=== PATIENT | female | born 1945 | race Caucasian/White ===

== ENCOUNTER → 2017-02-03 | Outpatient (CLI) | payer OTHER, BC ==
[~2017-02-03] MED LIST: BUPRTAB PO; BUSP15TA70 PO; CALC600T9 PO; CLR10 PO; CRFL PO; CRS/10 PO; DIAZ2TAB2 PO; ESCI1TAB9 PO; ESTR0.05 TOP; LEVO1TAB33 PO; LEVO75TA PO; MISCCAP80 PO; MULT-884 PO; PANT40TA PO; POTA8CAP6 PO; PRD20 PO; SPIR25TA PO
== END | disposition home or self-care (01) ==
LOC: C.LAB1850 15:00
PROVIDERS: ATTEND Internal Medicine Infectious Disease
DX: B37.0 Candidal stomatitis (principal); D80.9 Immunodeficiency with predominantly antibody defects, unspecified

== ENCOUNTER 2017-02-26 07:09 | Inpatient (IN) | payer OTHER, BC ==
[2017-02-23 14:08] VITALS: BMI 25.0
[2017-02-26] VITALS (7 sets, daily range): BP systolic 163–166; BP diastolic 76–88; PULSE 71–112; TEMP 36.4; O2SAT 95–100; Ht 157.5 cm; Wt 64.0 kg
[~2017-02-26] VITALS: Ht 157.5 cm; Wt 64.0 kg
[~2017-02-26 07:09] MED LIST changes: -BUPRTAB PO; +BUSP-8 PO; -BUSP15TA70 PO; -CRFL PO; -DIAZ2TAB2 PO; -LEVO1TAB33 PO; +NTRGSL/4 UT; +NXM/40 PO; -PANT40TA PO; -PRD20 PO; +PROP20TA67 PO; -SPIR25TA PO; +[UNRECOGNIZED DRUG - OTHER] IV
[2017-02-26] MEDS ORDERED: SODIUM CHLORIDE 0.9% 500ML 500 ML IV ONE (08:42)
--- NOTE | 2017-02-26 08:43 | Endo History and Physical ---
History & Physical Date of Service: Feb 26, 2017. Chief Complaint: DYSPHAGIA Referring Physician: DR. CARDOSO History of Present Illness 71 yo CF who presents for EGD secondary to dysphagia. 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) Hx Urinary Tract Surgery: No Family History Colon CA Social History Smoking Status: Never Smoker Hx Substance Use: No Hx Alcohol Use: No Allergies Coded Allergies: Rituximab (Verified Allergy, Severe, STRESSES BODY LEAD TO LA/INCREASED DEPRESSION, 02/26/17) Penicillins (Verified Allergy, Intermediate, RASH, 02/18/17) Povidone Iodine (Verified Allergy, Intermediate, RASH, 02/18/17) Golimumab (Verified Allergy, Unknown, SHORTNESS OF BREATH, 02/23/17) Latex1 -Allergic Contact Dermititis (Verified Allergy, Unknown, RASH, 02/18) Ondansetron (Verified Allergy, Unknown, SEIZURE-LIKE ACTIVITY, 02/23/17) "IT REACTED WITH LEXAPRO" Sorbitan (Verified Allergy, Unknown, SHORTNESS OF BREATH, 02/23/17) Current Medications Reported Home Medications Medications Dose Route/Sig Max Daily Dose Days Date Category [Gaspofungis Acitate] 1 Dose IV DAILY 02/23/17 Reported Klor-Con Ext Rel (Potassium Chloride) 8 Meq Cap 1-2 Tabs PO QAM 02/23/17 Reported Nexium (Esomeprazole Magnesium) 40 Mg Capcr 40 Mg PO QAM 02/23/17 Reported Nitrostat (Nitroglycerin) 0.4 Mg Tab 0.4 Mg UT UD PRN 02/23/17 Reported Inderal (Propranolol HCl) 20 Mg Tab 1.5 Tabs PO HS 02/23/17 Reported Buspirone Hcl 10 Mg Tab 10 Mg PO HS 02/23/17 Reported Claritin (Loratadine) 10 Mg Tab 10 Mg PO DAILY PRN 11/17/15 Reported Calcium + D (Calcium Carbonate-Vitamin D) 1 Tab Tab 1 Tab PO DAILY 11/17/15 Reported Multi Vitamin Daily (Multiple Vitamin) 1 Tab Tab 1 Tab PO DAILY 11/17/15 Reported Probiotic (Probiotic Product) 1 Cap Cap 1 Cap PO DAILY 11/17/15 Reported Synthroid (Levothyroxine Sodium) 75 Mcg Tab 75 Mcg PO QAM 11/17/15 Reported Crestor (Rosuvastatin Calcium) 10 Mg Tab 10 Mg PO HS 11/17/15 Reported Lexapro (Escitalopram Oxalate) 10 Mg Tab 10 Mg PO QAM 07/11/14 Reported Vivelle-Dot (Estradiol) 0.05 Mg/24 Hr Dis 0.05 Mg TOP WK 05/19/14 Reported Vital Signs Weight (Kilograms): 62.73 Height (Feet): 5 Height (Inches): 2 Date Time Temp Pulse Resp B/P (MAP) Pulse Ox O2 Delivery O2 Flow Rate FiO2 02/26/17 08:05 36.6 68 16 173/75 (107) 98 Room Air Physical Exam General Appearance: WD/WN, no apparent distress Respiratory/Chest: Auscultation: breath sounds normal Cardiovascular: Heart Auscultation: RRR Abdomen: Bowel Sounds: normal Inspection & Palpation: soft, non-distended, no tenderness, guarding & rebound Assessment and Plan Assessment: 71 yo CF who presents for EGD secondary to dysphagia. Plan: Proceed with EGD.
[2017-02-26] MEDS ORDERED: KETAMINE HCL INJ 50 MG/ML 10 ML VIAL ONE (09:16)
[2017-02-26] MEDS ORDERED: MIDAZOLAM HCL 1 MG/ML 2ML VIAL ONE (09:46)
[2017-02-26] MEDS ORDERED: DEXAMETHASONE SOD INJ 4 MG/ML VIAL ONE (10:24)
[2017-02-26] MEDS ORDERED: EpINEphrine INJ 1MG/ML AMP 1 MG/ML AMP ONE (10:24)
[2017-02-26] MEDS ORDERED: PROPOFOL IV EMULSION 10 MG/ML 20 ML VIAL IV ONE (10:24)
[2017-02-26] MEDS ORDERED: LIDOCAINE HCL 2% 2 ML VIAL (20MG/ML) ONE (10:24)
[2017-02-26] MEDS ORDERED: SUCCINYLCHOLINE 100MG/5ML SYR IV ONE (10:26)
[2017-02-26] MEDS ORDERED: POLYETHYLENE (MIRALAX) 17 GM PACK PO PRN (10:45)
[2017-02-26] MEDS ORDERED: ALUMINUM/MAGNESIUM/SIMETH (MAALOX MAX) 30 ML UDC PO PRN (10:45)
[2017-02-26] MEDS ORDERED: MAGNESIUM HYDROXIDE SUSP 30 ML UDC PO PRN (10:45)
--- NOTE | 2017-02-26 11:00 | GI REPORT ---
Procedure Date: 02/26/2017 8:46 AM Procedure: Upper GI endoscopy Indications: Dysphagia Medicines: Monitored Anesthesia Care Complications: Bronchospasm Estimated Blood Loss: Estimated blood loss: none. Procedure: Pre-Anesthesia Assessment: - Prior to the procedure, a History and Physical was performed, and patient medications and allergies were reviewed. The patient's tolerance of previous anesthesia was also reviewed. The risks and benefits of the procedure and the sedation options and risks were discussed with the patient. All questions were answered, and informed consent was obtained. Prior Anticoagulants: The patient has taken no previous anticoagulant or antiplatelet agents. ASA Grade Assessment: III - A patient with severe systemic disease. After reviewing the risks and benefits, the patient was deemed in satisfactory condition to undergo the procedure. After obtaining informed consent, the endoscope was passed under direct vision. Throughout the procedure, the patient's blood pressure, pulse, and oxygen saturations were monitored continuously. The scope was introduced through the mouth, with the intention of advancing to the duodenum. The scope was advanced to the second part of the duodenum before the procedure was aborted. Medications were given. The upper GI endoscopy was accomplished without difficulty. The patient tolerated the procedure poorly due to the patient's respiratory instability (bronchospasm). Findings: No endoscopic abnormality was evident in the esophagus to explain the patient's complaint of dysphagia. The entire examined stomach was normal. The examined duodenum was normal. Impression: - No endoscopic esophageal abnormality to explain patient's dysphagia. - Normal stomach. - Normal examined duodenum. - No specimens collected. Recommendation: - Admit the patient to [facility] for [facility] care. - Advance diet as tolerated. - Continue present medications. Zachary Bhakta, DO 02/26/2017 10:59:33 AM This report has been signed electronically. Note Initiated On: 02/26/2017 8:46 AM I attest to the content of the Intraoperative Record and orders documented therein, exceptions below
--- NOTE | 2017-02-26 11:03 | Anesthesiology Progress Note ---
Anesthesia Post Op Note Date & Time Feb 26, 2017 at 10:47 Vital Signs Pain Intensity: 0 Vital Signs Past 12 Hours Date Time Temp Pulse Resp B/P (MAP) Pulse Ox O2 Delivery O2 Flow Rate FiO2 02/26/17 08:05 36.6 68 16 173/75 (107) 98 Room Air Notes Mental Status: alert / awake / arousable, participated in evaluation Pt Amnestic to Procedure: Yes Nausea / Vomiting: adequately controlled Pain: adequately controlled Airway Patency, RR, SpO2: stable & adequate BP & HR: stable & adequate Hydration State: stable & adequate Anesthetic Complications: no major complications apparent Pt is a 71 yo female with h/o HTN, XOL, OA, chronic fungal infection with IV fungal treatment through PICC, and throat spasms on NTG at home. Pt reports having spasms intermittently at home with relief after using SL NTG. Has been seeing ENT in [place], not sure whether the fungal infection plays a role in causing the spasms. EGD was scheduled today to r/o esophageal fungal infection and dysphagia. During procedure, pt went into laryngospasm with O2 sats dropping to 50% precipitously, unable to move air with ambu bag. 10mg of succinylcholine IV was given and laryngospasm was broken. O2 sats went up to 100 %. Patient easily masked with 100% FiO2. Pt was then aroused and was breathing on her own, however, inspiratory stridor was noted. 8mg IV decadron and racemic epi nebulizer was given with some improvement. Pt at this point was awake. Sats maintained between 96-100%. However, pt still was coughing and have the sensation of not able to breathe. Her NTG SL was given x 2 with more improvement. 2mg of IV Versed was given to relief her anxiety. Sats continued to be in upper 90%. Discussed with Dr. Bhakta and the decision was made to observe patient overnight with consult to hospitalist. SALVADOR Morel with the hospitalist service came and interviewed the patient; report was given to her regarding patient's medication and treatment so far. Dr. López with ENT, was also briefly consulted and recommended just observation overnight given that patient is not having any issues with oxygenation and maintaining her O2 level. I explained to both patient and her sister, Lovely, about plan of admission and both agreed with plan. VSS.
[2017-02-26] MEDS ORDERED: NITROGLYCERIN 0.4 MG SL PER TAB CHARGE SL PRN ×2 (11:30→14:15)
[2017-02-26] MEDS ORDERED: IV FLUIDS COMPLETED PRN ×2 (11:30→12:45)
[2017-02-26] MEDS ORDERED: ALBUTEROL 0.083% NEBU SOLN 3 ML VIAL INH SCH (11:45)
--- NOTE | 2017-02-26 11:47 | DIAGNOSTIC IMAGING REPORT ---
CHEST ONE VIEW PORTABLE CLINICAL HISTORY: Laryngospasm - Dyspnea dyspnea COMPARISON STUDY: 11/17/2015 FINDINGS: Interval parenchymal infiltrate left mid to lower lung. Trace pleural effusion left base. Right lung is clear. There is been placement of a PICC catheter in superior vena cava. No evidence pneumothorax. IMPRESSION: Parenchymal infiltrate left mid to lower lung. Small left pleural effusion. PICC catheter in the superior vena cava. The above report was generated using voice recognition software. It may contain grammatical, syntax or spelling errors. Electronically signed by: Giorgi Menezes M.D. 02/26/2017 11:46 AM Dictated Date/Time: 02/26/2017 11:45 AM
--- NOTE | 2017-02-26 11:55 | History and Physical ---
History & Physical Date & Time of Service: Feb 26, 2017 at 11:55 Chief Complaint: Dysphagia Pager 2 Primary Care Physician: Allison Wood M.D. History of Present Illness Source: patient, clinic records, hospital records Ms. Rivera is a 71 y/o female with PMHx of Rheumatoid Arthritis, Chronic Dysphagia, Anxiety/Depression, GERD, HLD, Hypothyroidism, CAD S/P NSTEMI, H/O Gastric Ulcers, Chronic Diastolic CHF who experienced laryngospasm during EGD. Patient reports having daily laryngospasms since the summer and has undergone evaluation for cause. She has been unable to adequately eat due to this but only reports a 5 lbs weight loss since the summer. She has difficulty with solids and liquids. She cannot really state at what phase of swallowing she is having difficulty with. These spasms initially only occurred every few days but have progressed to daily occurrences with multiple episodes. Also states that these episodes are taking longer to resolve compared to when this issues began. She has been followed by Dr. Thompson for oropharynx fungal infection that only minimally responded to Diflucan so was recently placed on Caspofungin 50 mg IV with PICC line in place. During EGD no findings present to explain her chronic dysphagia or findings of fungal infection. She has been utilizing NTG SL PRN with relief. During procedure she developed laryngospasm resulting in significant hypoxia of 50% and unable to move air with Ambu-bag. She was given succinylcholine which resolved the spasm and saturations returned to 100%. Due to inspiratory stridor she then received Decadron 8 mg IV and Racemic Epi that did result in improvement. She was maintaining adequate oxygenations but would experience coughing and wheezing that would result in hypoxia in high-80s. During coughing spells she appeared in more distress and reporting SOB. NTG SL was initiated x 2 doses and Versed given which continued to improve her. Anesthesia discussed with ENT for possible scope but recommended just observation overnight as oxygenations were adequate. She does follow with Dr. Ellis from ENT in [place]. Past Medical/Surgical History 1. Rheumatoid Arthritis 2. Chronic Dysphagia 3. Anxiety/Depression 4. GERD 5. HLD 6. Hypothyroidism 7. CAD S/P NSTEMI 8. Gastric Ulcers 9. Diastolic CHF Family History Cancer Hypertension Social History Smoking Status: Never Smoker Smokeless Tobacco Use: No Alcohol Use: none Drug Use: none Marital Status: Allergies Coded Allergies: Rituximab (Verified Allergy, Severe, STRESSES BODY LEAD TO [place]/INCREASED DEPRESSION, 02/26/17) Penicillins (Verified Allergy, Intermediate, RASH, 02/18/17) Povidone Iodine (Verified Allergy, Intermediate, RASH, 02/18/17) Golimumab (Verified Allergy, Unknown, SHORTNESS OF BREATH, 02/23/17) Latex1 -Allergic Contact Dermititis (Verified Allergy, Unknown, RASH, 02/18) Ondansetron (Verified Allergy, Unknown, SEIZURE-LIKE ACTIVITY, 02/23/17) "IT REACTED WITH LEXAPRO" Sorbitan (Verified Allergy, Unknown, SHORTNESS OF BREATH, 02/23/17) Home Medications Scheduled Buspirone Hcl (Buspirone Hcl), 10 MG PO HS Calcium Carbonate-Vitamin D (Calcium + D), 1 TAB PO DAILY Escitalopram Oxalate (Lexapro), 10 MG PO QAM Esomeprazole Magnesium (Nexium), 40 MG PO QAM Estradiol (Vivelle-Dot), 0.05 MG TOP WK Levothyroxine Sodium (Synthroid), 75 MCG PO QAM Multiple Vitamin (Multi Vitamin Daily), 1 TAB PO DAILY Potassium Chloride (Klor-Con Ext Rel), 1-2 TABS PO QAM Probiotic Product (Probiotic), 1 CAP PO DAILY Propranolol (Inderal), 1.5 TABS PO HS Rosuvastatin Calcium (Crestor), 10 MG PO HS [Gaspofungis Acitate], 1 DOSE IV DAILY Scheduled PRN Loratadine (Claritin), 10 MG PO DAILY PRN for Seasonal Allergies Nitroglycerin (Nitrostat), 0.4 MG UT UD PRN for THROAT SPASMS Review of Systems Constitutional: No fever, No chills Eyes: No worsening of vision ENT: + trouble swallowing (chronic), + problem reported (chronic laryngospasm) , No nasal symptoms, No sore throat Respiratory: + cough, + wheezing, + shortness of breath Cardiovascular: No chest pain, No palpitations Abdomen: No pain, No nausea, No vomiting, No diarrhea, No constipation Musculoskeletal: No swelling, No calf pain Genitourinary - Female: No dysuria Hematologic / Lymphatic: No abnormal bleeding/bruising, No clotting problems Integumentary: No rash Physical Exam Vital Signs Date Time Temp Pulse Resp B/P (MAP) Pulse Ox O2 Delivery O2 Flow Rate FiO2 02/26/17 11:40 73 20 134/73 (93) 98 Oxymask 10 02/26/17 11:25 74 18 159/ (52) 98 Oxymask 10 02/26/17 11:10 85 18 160/82 (108) 98 Oxymask 10 02/26/17 10:55 84 22 160/77 (104) 98 Oxymask 10 98 02/26/17 10:40 89 20 164/78 (106) 98 Oxymask 10 98 02/26/17 08:05 36.6 68 16 173/75 (107) 98 Room Air General Appearance: WD/WN, + mild distress (respiratory with coughing spells) Head: normocephalic, atraumatic Eyes: sclerae normal ENT: hearing grossly normal, pharynx normal Neck: supple, no JVD, trachea midline, + pertinent finding (stridor upon auscultation) Respiratory/Chest: + respiratory distress, + stridor, + wheezing Cardiovascular: regular rate, rhythm, no gallop, no murmur Abdomen/GI: normal bowel sounds, non tender, soft Extremities/Musculoskelatal: no calf tenderness, no pedal edema, + pertinent finding (LUE PICC without erythema or discharge) Neurologic/Psych: alert, oriented x 3 Skin: normal color, warm/dry Diagnostics Laboratory Results Microbiology Results 02/26/17 MRSA DNA Surveillance Screen, Ordered Pending Diagnostic Radiology CHEST ONE VIEW PORTABLE FINDINGS: Interval parenchymal infiltrate left mid to lower lung. Trace pleural effusion left base. Right lung is clear. There is been placement of a PICC catheter in superior vena cava. No evidence pneumothorax. IMPRESSION: Parenchymal infiltrate left mid to lower lung. Small left pleural effusion. PICC catheter in the superior vena cava. Impression Assessment and Plan Ms. Rivera is a 71 y/o female with PMHx of Rheumatoid Arthritis, Chronic Dysphagia, Anxiety/Depression, GERD, HLD, Hypothyroidism, CAD S/P NSTEMI, H/O Gastric Ulcers, Chronic Diastolic CHF who experienced laryngospasm during EGD. Acute Hypoxic Respiratory Failure with Resp. Distress due to Laryngospasm: - Due to concern for airway compromise and risk for rapid worsening of stridor will place in ICU for initial observation -- Discussed with patient that she would want to be intubated if necessary - Was significantly hypoxic at 50% during EGD and required succs, decadron, racemic epi, versed, and nitro - EGD without significant findings to identify cause of dysphagia - Decadron 8 mg IV Q8H and Racemic Epi Q4H with Albuterol PRN - Will defer further antibiotics as repeat CXR with aeration improvement - Pulmonary and Intensivists consulted - appreciate assistance Chronic Dysphagia and Laryngospasm/GERD: - Initial question of fungal infection involvement and currently on Caspofungin 50 mg IV - will consult ID and appreciate further recommendations - ENT consultation placed and recommend evaluation for CA joint involvement due to RA - Protonix 40 mg daily Rheumatoid Arthritis: - Currently off treatment but previously on Simponi and was following with Dr. Roberson - Rheumatology consulted - appreciate recommendations and will review records -- Recommending Prednisone 30 mg daily x 4 days and taper by 10 mg every 4 days and then do 5 mg daily senior living T2DM? - Documented in chart however patient states she is not diabetic or ever on anti -diabetic medication - Random glucose on BMP at 170 and plan to implement Decadron so will monitor BSGs and cover with SSI; obtain A1c CAD S/P NSTEMI and HTN: - Follows with cardiology - suggested NSTEMI was from Sepsis/PNA instead of a coronary process - HTN believed to be related to possible use of Simponi and has been monitored - No ASA due to H/O gastric ulcers - Propranolol 30 mg daily Anxiety/Depression: - Buspar 10 mg daily and Lexapro 10 mg daily Hypothyroidism: - Synthroid 75 mcg daily DVT Prophylaxis: SCDs; if here for multiple days can add Heparin Code Status: FULL RESUSCITATION Disposition: - Initial monitoring in ICU for concern of airway compromise - Pending stability of airway and recommendations for specialists - possible D/ C in 2-3 days Level of Care Critical Care Resuscitation Status FULL RESUSCITATION VTE Prophylaxis VTE Risk Assessment Done? Y/N: Yes Risk Level: Moderate Given or contraindicated: SCD's Reviewed: Pt Seen/Exam by Me History Physician Pharmacy Benefit Manager Supervision Note: I interviewed and examined the patient. Discussed with SALVADOR Benson and agree with findings and plan as documented in the note. Any exceptions or clarifications are listed here: Pt admitted for acute laryngospasm just after EGD performed today. When I first saw her,she was still in the Endo suite and was still having inspiratory stridor , was requiring 15 L NRB to keep sat at 90%. SHe denies CP, was coughing, denies abd pain or any other concerns, but was SOB. Vtials reviewed NAD, AAOx3 Neck supple, no TYE palpable, no thryromegaly mild tachycardia, no mgr Lungs with diffuse wheezing insp and exp, very poor air movement throughout lungs bilat, and obvious stridor auscultated best over anterior mid chest/ tracheal area Abd + bS soft NT ND Ext no edema, no calf tenderness 71 yo female with multiple medical issues, here with acute laryngospasm in setting of recurrent dysphagia which has likely also been laryngospasm at home. 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 -CXR with poor inspiration on initial CXR due to laryngospasm, repeat much improved, no sign of PNA, no abx needed SCDs for DVT proph Documented By: Ceci Burgos
[2017-02-26] MEDS ORDERED: CASPOFUNGIN INJ 50 MG in SODIUM CHLORIDE 0.9% 250ML 250 ML IV ONE (13:00)
[2017-02-26] MEDS: ACETAMINOPHEN 325 MG TAB PO PRN ×2 (13:06→20:20)
[2017-02-26] MEDS: SODIUM CHLORIDE 0.9% 1000ML 1,000 ML IV SCH (13:06)
--- NOTE | 2017-02-26 13:41 | Pulmonary Consultation ---
History General Date of Service: Feb 26, 2017. Stated Complaint: Dysphagia Pager 2 HPI The patient is a 71 year old female who presents to [facility] [address] with complaints of Dysphagia Pager 2. The patient's primary care provider is Allison Wood M.D.. Mrs. Lagunas is a 71-year-old female with past medical history of type 2 diabetes, rheumatoid arthritis, hypothyroidism, anxiety/depressive disorder and NSTEMI who present for EGD for today for evaluation of possible dysphagia. She is currently being followed by ENT for laryngospasm. Her symptoms started in September of this year. She states that she has these episodes several times a day. Laryngospasms are often associated with stridor, choking sensation, dyspnea and "lump in throat." Spasms can occur spontaneously, but can be trigger by eating hard food, drinking cold drinks,coughing and anxiety. Symptoms should resolve with sublingual nitroglycerin within a minute, but now she has to take about 2- 3 pills before spasms resolve. She has seen ENT on weekly basis where laryngoscopy has been performed. She is currently on daily gaspofungis 1 dose daily IV for candidiasis of larynx. She has mild dyspnea on exertion, but able to perform activities of daily living. She denies dyspnea at rest. She has history of reflux disease and ulcers as well as chronic sinusitis and rhinitis. She denies any wheezing or chest tightness associated. She was being evaluated by GI today for dysphagia and to rule out esophageal candidiasis. EGD was essentially normal. However during the procedure patient went into laryngospasm with desaturations in the 50s. She was unable to be ventilated via Ambu bag. She was given succinylcholine IV and laryngospasm resolved. O2 sats increased to 100%. She was mask with 100% FiO2. Patient aroused but was noted to have inspiratory stridor. She was given 8 mg of IV Decadron as well as racemic epi nebulizer with improvement. She was also given 2 mg of IV Versed and for anxiety. Vital signs MAXIMUM TEMPERATURE 36.6, blood pressure 134/73 to 173/75, pulse 60- 89, respiratory rate 16-22, pulse oximetry 92% on 4-10 L/min. Stat chest x-ray ordered and shows parenchymal infiltrate in the left mid to lower lung, small left pleural effusion. PICC catheter in superior vena cava. Hospital list team was consulted for overnight observation. Pulmonary consulted for laryngospasm. At the time of my evaluation, vital signs stable. Currently saturating in the 100s on 10L/m oxymizer. She complains of sensation of something being "stuck" in her throat. She denies any chest pain or shortness of breath. Otherwise feeling much better. Historian: patient, other (EMR) Onset: this morning Severity: severe Complaint Status: improved Review of Systems Constitutional: reports: as stated in HPI, malaise Eyes: reports: as stated in HPI ENT: reports: as stated in HPI Cardiovascular: reports: as stated in HPI Respiratory: reports: as stated in HPI Gastrointestinal: reports: as stated in HPI Genitourinary - Female: reports: as stated in HPI Musculoskeletal: reports: as stated in HPI Integumentary: reports: as stated in HPI Neurologic: reports: as stated in HPI Psychiatric: reports: as stated in HPI Endocrine: as stated in HPI Hematologic / Lymphatic: as stated in HPI Allergic / Immunologic: as stated in HPI All Other Symptoms All Other Systems: Reviewed and Negative Past Medical History Past Medical History: Type 2 diabetes, rheumatoid arthritis, hypothyroidism, anxiety/depressive disorder and NSTEMI. Past Surgical History: Back surgery C section EGD Family History Cancer Hypertension Sister had Kaw[place]i disease 1st child of agammglobinemia at 6 years old Father of GI cancer Social History She is a lifetime nonsmoker. She denies any alcohol or illicit drug use. 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 Hx Tobacco Use In Past Year?: No Smoking Status: Never Smoker Marital status: Allergies Coded Allergies: Rituximab (Verified Allergy, Severe, STRESSES BODY LEAD TO [place]/INCREASED DEPRESSION, 02/26/17) Penicillins (Verified Allergy, Intermediate, RASH, 02/18/17) Povidone Iodine (Verified Allergy, Intermediate, RASH, 02/18/17) Golimumab (Verified Allergy, Unknown, SHORTNESS OF BREATH, 02/23/17) Latex1 -Allergic Contact Dermititis (Verified Allergy, Unknown, RASH, 02/18) Ondansetron (Verified Allergy, Unknown, SEIZURE-LIKE ACTIVITY, 02/23/17) "IT REACTED WITH LEXAPRO" Sorbitan (Verified Allergy, Unknown, SHORTNESS OF BREATH, 02/23/17) Current Medications Reported Home Medications Medications Dose Route/Sig Max Daily Dose Days Date Category [Gaspofungis Acitate] 1 Dose IV DAILY 02/23/17 Reported Klor-Con Ext Rel (Potassium Chloride) 8 Meq Cap 1-2 Tabs PO QAM 02/23/17 Reported Nexium (Esomeprazole Magnesium) 40 Mg Capcr 40 Mg PO QAM 02/23/17 Reported Nitrostat (Nitroglycerin) 0.4 Mg Tab 0.4 Mg UT UD PRN 02/23/17 Reported Inderal (Propranolol HCl) 20 Mg Tab 1.5 Tabs PO HS 02/23/17 Reported Buspirone Hcl 10 Mg Tab 10 Mg PO HS 02/23/17 Reported Claritin (Loratadine) 10 Mg Tab 10 Mg PO DAILY PRN 11/17/15 Reported Calcium + D (Calcium Carbonate-Vitamin D) 1 Tab Tab 1 Tab PO DAILY 11/17/15 Reported Multi Vitamin Daily (Multiple Vitamin) 1 Tab Tab 1 Tab PO DAILY 11/17/15 Reported Probiotic (Probiotic Product) 1 Cap Cap 1 Cap PO DAILY 11/17/15 Reported Synthroid (Levothyroxine Sodium) 75 Mcg Tab 75 Mcg PO QAM 11/17/15 Reported Crestor (Rosuvastatin Calcium) 10 Mg Tab 10 Mg PO HS 11/17/15 Reported Lexapro (Escitalopram Oxalate) 10 Mg Tab 10 Mg PO QAM 07/11/14 Reported Vivelle-Dot (Estradiol) 0.05 Mg/24 Hr Dis 0.05 Mg TOP WK 05/19/14 Reported Physical Physical Exam Vital Signs: Date Time Temp Pulse Resp B/P (MAP) Pulse Ox O2 Delivery O2 Flow Rate FiO2 02/26/17 11:40 73 20 134/73 (93) 98 Oxymask 02/26/17 11:25 74 18 159/ (52) 98 Oxymask 02/26/17 11:10 85 18 160/82 (108) 98 Oxymask 02/26/17 10:55 84 22 160/77 (104) 98 Oxymask 10 98 02/26/17 10:40 89 20 164/78 (106) 98 Oxymask 10 98 02/26/17 08:05 36.6 68 16 173/75 (107) 98 Room Air General Appearance: WELL-APPEARING, NO APPARENT DISTRESS, uncomfortable Head: NORMOCEPHALIC, ATRAUMATIC Eyes: PERRLA, NO DISCHARGE, EOMI, SCLERAE NORMAL, CONJUNCTIVAE NORMAL ENT: NORMAL MOUTH EXAM Neck: NORMAL RANGE OF MOTION, NO TENDERNESS, TRACHEA MIDLINE, NO NUCHAL RIGIDITY, other (intermittent stridor) Respiratory: BREATH SOUNDS NORMAL, CLEAR TO AUSCULTATION, NO TENDERNESS Cardiovasular: REGULAR RATE/RHYTHM, NORMAL S1S2, NO M/G/R Abdomen: NON TENDER, NORMAL BOWEL SOUNDS, NO REBOUND Genitourinary - Female: EXTERNAL GENITALIA NORMAL Back: NORMAL INSPECTION, NO MIDLINE TENDERNESS Upper Extremities: NO EDEMA, other (Swelling of PIP joints bilaterally) Lower Extremities: other (trace lower extremity swelling bilaterally) Pulses: dorsalis pedis (R) (2+), dorsalis pedis (L) (2+) Neuro: ALERT, ORIENTED x 3, NORMAL MOTOR EXAM, NORMAL SENSATION, NORMAL CEREBELLAR EXAM, NORMAL MEMORY Psychiatric: NORMAL AFFECT, NO SUICIDAL IDEATION, CONTRACTS FOR SAFETY, depressed Diagnostics Labs Microbiology Results 02/26/17 MRSA DNA Surveillance Screen, Ordered Pending Diagnostic Radiology CHEST ONE VIEW PORTABLE 02/26/2017 CLINICAL HISTORY: Laryngospasm - Dyspnea dyspnea COMPARISON STUDY: 11/17/2015 FINDINGS: Interval parenchymal infiltrate left mid to lower lung. Trace pleural effusion left base. Right lung is clear. There is been placement of a PICC catheter in superior vena cava. No evidence pneumothorax. IMPRESSION: Parenchymal infiltrate left mid to lower lung. Small left pleural effusion. PICC catheter in the superior vena cava. L VENOUS DOPPLER UPR EXT UNIL 02/18/2017 HISTORY: Pain. Edema. PT HAVING SHARP PAINS AROUND PICC LINE AND TINGLING FINGERS COMPARISON STUDY: None. FINDINGS: The internal jugular vein is patent. There is normal flow within the subclavian vein. There is normal flow and compressibility within the left axillary, basilic, brachial, radial, ulnar, and visualized cephalic veins. IMPRESSION: No DVT within the upper extremity. CT ANGIOGRAM OF THE CHEST 11/19/2015 CLINICAL HISTORY: Hypoxia. COMPARISON STUDY: Chest x-ray dated 11/17/2015. TECHNIQUE: Following the IV administration of 87 cc of Optiray 320, CT angiogram of the chest was performed from the upper abdomen to the thoracic inlet utilizing the pulmonary embolus protocol. Images are reviewed in the axial, sagittal, and coronal planes. 3-D MIPS images are created and assessed. IV contrast was administered without complication. CT DOSE: 203.21 mGy.cm FINDINGS: Thyroid: Atrophic. Thoracic aorta: There is mild atherosclerotic calcification of the thoracic aorta, which is normal in caliber and demonstrates standard 3-vessel arch anatomy. No aneurysm or dissection is seen. Pulmonary vasculature: The pulmonary trunk is normal in caliber. There are no filling defects identified in main, lobar, or segmental pulmonary branches to suggest pulmonary embolus. Heart: The heart is mildly enlarged and without pericardial effusion. Coronary arteries are densely calcified. Lungs and pleural spaces: Groundglass changes are present throughout the lower lobes bilaterally. There are large foci of linear atelectasis present at both lung bases. No lobar consolidation or pleural effusion is seen. The trachea and central airways are clear. Mediastinum: There is no mediastinal lymphadenopathy. Ifeoma: Clear. Axillae: There is no axillary lymphadenopathy. Upper abdomen: There is a small hiatal hernia. Partially visualized upper abdominal viscera is otherwise within normal limits. Skeletal structures: The skeletal structures are osteopenic. No lytic or blastic bony lesions are seen. Mild scoliosis is noted at the thoracolumbar junction. There are mild and age indeterminant compression deformities of T7 and T10. IMPRESSION: 1. There is no evidence of pulmonary embolus in the main, lobar, or segmental pulmonary arteries. 2. Cardiomegaly. 3. No lobar consolidation or pleural effusion is seen. 4. There are groundglass changes seen throughout the lower lobes, likely representing atelectasis. Correlate clinically for evidence of a mild superimposed infectious or inflammatory pneumonitis. TTE 11/19/2015 * The left ventricle is normal in size. * There is normal left ventricular wall thickness. * Ejection Fraction = 60-65%. * A full diastolic examination was done with clinical findings of Class I diastolic dysfunction. * The right ventricle is normal in size and function. * The right ventricular systolic function is normal as assessed by tricuspid annular plane systolic excursion (TAPSE) (normal >1.5 cm). Upper GI 02/02/2016 HISTORY: Dyspepsia. Gastric ulcers. FINDINGS: The patient initiated swallowing function well. Esophageal motility is remarkable for a trace amount of the spasm. Otherwise unremarkable. Size configuration stomach is normal. Duodenal bulb fills well and is negative for ulceration. There is a possible small polyp of the descending portion of the duodenal sweep. IMPRESSION: 1. Minimal esophageal spasm and irritability. 2. No evidence for ulceration with remaining components of the study unremarkable. 3. Small polyp possibly the descending aspect of the duodenal sweep Myocardial perfusion study and Lexican pharmacologic stress test 07/10/2014 IMPRESSION: 1. Negative Cardiolyte SPECT study for ischemia or infarct. 2. Normal wall motion and hyperdynamic LV systolic function with EF 81%. 3. Lexiscan indused chest discomfort, flushing and nausea. 4. Nondiagnostic Lexica ECG as the patient did not obtain 85% maximum predicted heart rate. Impression Assessment and Plan Laryngospasm/vocal cord dysfunction Acute hypoxic respiratory failure Grade 1 diastolic dysfunction. Possible pneumonia of LLL Anxiety/Depression Recommendations Observe in ICU overnight. Continue with supplemental oxygenation to maintain SaO2 >92%. If needed CPAP/ BIPAP can be used. Heliox can be used if her symptoms recur as well sublingual NTG 0.4 mg q5 min. Continue with Racemic epi and dexamethasone. Questionable LLL opacification seen on CXR, can empirically treat with broad spectrum antibiotics to cover for aspiration pneumonia. Continue with Bronchodilators prn. Continue with PPI for GERD and loratadine for rhinitis/sinusitis to alleviate cough as a possible trigger. Optimize anxiety medications as this seems to be a diallo contributor to her symptoms. She should have an official a full PFT to assess flow volume loops and continue to follow with ENT upon hospital discharge. I appreciate the consult. Please contact me if you have any other question or concerns.
[2017-02-26] MEDS: DEXAMETHASONE INJ 8 MG in SYRINGE 0 ML IV SCH ×2 (14:44→21:53)
--- NOTE | 2017-02-26 14:56 | Critical Care Consultation ---
Critical Care Consultation Date of Consultation: Feb 26, 2017. Attending Physician: Ceci Burgos MD Reason for Consultation: Laryngospasm during EGD History of Present Illness 71 year old female presented for EGD procedure today for evaluation of severe dysphagia ongoing since September and to rule out esophageal candidiasis. She is followed by ENT in [place] for laryngospasm, where laryngoscopy has been performed. She states that her dysphagia has progressively worsened, initially occurring once every couple of days, now occurring 3-5 times a day. The episodes are associated with dyspnea, chest tightness, and choking and globus sensations. She denies associated chest pain, palpitations, dizziness, syncope or presyncopal episodes. The patient notes that over time, the symptoms have progressively become more severe and last for a longer duration. They can be triggered by eating hard foods, cold drinks, coughing, anxiety, and are also known to occur spontaneously. Patient attains relief in 5-6 minutes with 2-3 sublingual nitroglycerin tablets, which she carries with her at all times. Previously they would resolve in a minute with a single tablet. Of note, patient is currently on IV caspofungin daily for candidiasis of larynx, but physicians unsure of exact contribution of infection to laryngospasms. EGD was essentially normal. During the procedure however, patient went into laryngospasm with O2 saturations declining precipitously to 50%. 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 Subsequently, the laryngospasm resolved with return of saturations to 100%, and patient was then easily masked with 100% FiO2. Post procedure, patient was aroused and breathing spontaneously. However, inspiratory stridor was noted. At that time, 8mg of IV Decadron and racemic epi nebs were administered with some improvement. Awake, the patient was saturating between 96-100%. However, she was still coughing and felt subjectively dyspneic. Her NTG SL was given x 2 with further improvement as well as 2mg of IV Versed to relieve anxiety. Spray Crew, Dr. Bhakta and family agreed for admission for overnight observation to ensure adequate oxygenation, and management of potential recurrent laryngospasm if necessary. Past Medical/Surgical History Past medical history: NSTEMI Type 2 diabetes Uncontrolled rheumatoid arthritis Reflux disease and ulcers Hypothyroidism Anxiety/depressive disorder Chronic sinusitis and rhinitis HTN, HLD OA Past Surgical History: Back surgery C section EGD Family History Cancer Hypertension Sister had Kawasaki disease 1st child of agammaglobulinemia at 6 years old Father of GI cancer Social History She is a lifetime nonsmoker. She denies any alcohol or illicit drug use. 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 Smoking Status: Never Smoker Drug Use: none Marital Status: Housing Status: lives alone Occupation Status: retired Allergies Coded Allergies: Rituximab (Verified Allergy, Severe, STRESSES BODY LEAD TO [place]/INCREASED DEPRESSION, 02/26/17) Penicillins (Verified Allergy, Intermediate, RASH, 02/18/17) Povidone Iodine (Verified Allergy, Intermediate, RASH, 02/18/17) Golimumab (Verified Allergy, Unknown, SHORTNESS OF BREATH, 02/23/17) Latex1 -Allergic Contact Dermititis (Verified Allergy, Unknown, RASH, 02/18) Ondansetron (Verified Allergy, Unknown, SEIZURE-LIKE ACTIVITY, 02/23/17) "IT REACTED WITH LEXAPRO" Sorbitan (Verified Allergy, Unknown, SHORTNESS OF BREATH, 02/23/17) Home Medications Scheduled Buspirone Hcl (Buspirone Hcl), 10 MG PO HS Calcium Carbonate-Vitamin D (Calcium + D), 1 TAB PO DAILY Escitalopram Oxalate (Lexapro), 10 MG PO QAM Esomeprazole Magnesium (Nexium), 40 MG PO QAM Estradiol (Vivelle-Dot), 0.05 MG TOP WK Levothyroxine Sodium (Synthroid), 75 MCG PO QAM Multiple Vitamin (Multi Vitamin Daily), 1 TAB PO DAILY Potassium Chloride (Klor-Con Ext Rel), 1-2 TABS PO QAM Probiotic Product (Probiotic), 1 CAP PO DAILY Propranolol (Inderal), 1.5 TABS PO HS Rosuvastatin Calcium (Crestor), 10 MG PO HS [Gaspofungis Acitate], 1 DOSE IV DAILY Scheduled PRN Loratadine (Claritin), 10 MG PO DAILY PRN for Seasonal Allergies Nitroglycerin (Nitrostat), 0.4 MG UT UD PRN for THROAT SPASMS Current Inpatient Medications Current Inpatient Medications Medications (Trade) Dose Ordered Sig/Danny Route Start Time Stop Time Status Last Admin Dose Admin Sodium Chloride 500 ml @ 15 mls/hr Q24H ONCE IV 02/26/17 08:42 02/27/17 08:41 Acetaminophen (Tylenol Tab) 650 mg Q4H PRN PO 02/26/17 10:45 03/28/17 10:44 02/26/17 13:06 650 MG Al Hydrox/Mg Hydrox/Simethicone (Maalox Max Susp) 15 ml Q4H PRN PO 02/26/17 10:45 03/28/17 10:44 Magnesium Hydroxide (Milk Of Magnesia Susp) 30 ml Q12H PRN PO 02/26/17 10:45 03/28/17 10:44 Polyethylene (Miralax Powder Packet) 17 gm DAILY PRN PO 02/26/17 10:45 03/28/17 10:44 Racepinephrine (Raccemic Epinephrine 2.25% 0.5ML Neb) 0.5 ml Q4R INH 02/26/17 16:00 03/28/17 15:59 Dexamethasone Sodium Phosphate 8 mg/Syringe 2 ml @ 1 mls/min Q8H IV 02/26/17 14:00 03/28/17 11:29 Miscellaneous (Iv Fluids Completed) 1 ea PRN PRN N/A 02/26/17 11:30 02/26/18 11:29 Sodium Chloride 1,000 ml @ 75 mls/hr [id number] IV 02/26/17 13:00 03/28/17 11:28 02/26/17 13:06 75 MLS/HR Nitroglycerin (Nitrostat Tab) 0.4 mg UD PRN SL 02/26/17 11:30 03/28/17 11:29 Albuterol Sulfate (Ventolin 0.083% 2.5MG/3ML Neb) 2.5 mg Q2H PRN INH 02/26/17 11:45 03/28/17 11:44 Caspofungin 50 mg/ Sodium Chloride 260 ml @ 250 mls/hr DAILY IV 02/27/17 09:00 03/29/17 08:59 Caspofungin 50 mg/ Sodium Chloride 260 ml @ 250 mls/hr NOW ONCE IV 02/26/17 13:00 02/26/17 14:02 02/26/17 13:06 250 MLS/HR Miscellaneous (Iv Fluids Completed) 1 ea PRN PRN N/A 02/26/17 12:45 02/26/18 12:44 Review of Systems Unremarkable except as noted above Physical Exam Date Time Temp Pulse Resp B/P (MAP) Pulse Ox O2 Delivery O2 Flow Rate FiO2 02/26/17 12:47 36.4 88 16 166/77 96 Nasal Cannula 2.0 02/26/17 12:10 86 20 165/81 (109) 99 Nasal Cannula 4 02/26/17 11:55 82 20 152/82 (105) 100 Oxymask 10 02/26/17 11:40 73 20 134/73 (93) 98 Oxymask 10 02/26/17 11:25 74 18 159/ (52) 98 Oxymask 10 02/26/17 11:10 85 18 160/82 (108) 98 Oxymask 10 02/26/17 10:55 84 22 160/77 (104) 98 Oxymask 10 98 02/26/17 10:40 89 20 164/78 (106) 98 Oxymask 10 98 02/26/17 08:05 36.6 68 16 173/75 (107) 98 Room Air GENERAL: alert, sitting in bed, no acute distress, non-toxic. Wearing O2 via NC HEAD: NC/AT. No sinus tenderness EYES: Normal sclera and conjunctiva OROPHARYNX: No perioral cyanosis. No exudate, no erythema. Lips, buccal mucosa, and tongue normal and mucous membranes are moist NECK: Supple, no adenopathy, tender on palpation, per patient, palpation makes her feel choked and triggers cough LUNGS: Clear to auscultation. Normal chest wall mechanics, good air entry. No crepitations, crackles, or wheezes HEART: RRR, S1 and S2 normal, no murmurs appreciated ABDOMEN: Soft, non-tender, normo-active bowel sounds, no masses, no rebound or guarding. SKIN: Warm, pink, dry. No erythema, rashes, or bruising. EXTREMITIES: Grossly normal. Moving all 4 limbs. No pitting edema. Calves supple. NEURO: Alert, Ox3. No focal deficits. Cranial nerves II-XII grossly intact, normal speech. PSYCH: Mood and affect appropriate. Diagnostic Results CHEST ONE VIEW PORTABLE CLINICAL HISTORY: Laryngospasm - Dyspnea dyspnea COMPARISON STUDY: 11/17/2015 FINDINGS: Interval parenchymal infiltrate left mid to lower lung. Trace pleural effusion left base. Right lung is clear. There is been placement of a PICC catheter in superior vena cava. No evidence pneumothorax. IMPRESSION: Parenchymal infiltrate left mid to lower lung. Small left pleural effusion. PICC catheter in the superior vena cava. Assessment & Plan Reason critically ill: 71 year old female presents with laryngospasm during EGD being done for dysphagia. Neuro - CAM ICU negative. - Analgesia: Tylenol PRN - Depression/anxiety: continue escitalopram and buspirone CV - Vitals HR 88, BP 166/77 - hemodynamically stable - H/o NSTEMI, HTN: continue propranolol, rosuvastatin. - Continue to monitor on telemetry Resp - Oxygen 2L via NC, wean as tolerated - CXR: Parenchymal infiltrate left mid to lower lung. Small left pleural effusion. - SL nitroglycerin 0.4mg PRN laryngospasm - Pulmonology consulted - IV Dexamethasone 8mg q8h and racemic epinephrine q4h. - Albuterol neb PRN SOB/wheezing GI/Nutrition - Diet: Clear liquids. Will advance as tolerated - s/p EGD - reported no abnormalities - Continue pantoprazole Renal/ - IVF: NSS 75cc/hr - Monitor I/Os - No recent labs. Will check CBC - No Carrizales ID - Antibiotics: IV caspofungin 50mg daily - Infectious diseases consulted - No signs of active infection. Monitor fever curve Endo - T2DM: patient not on any medications. Check glucose per ICU protocol - Hypothyroidism: continue levothyroxine 75mcg Heme - No recent labs. Will check CBC MSK/Skin - RA: not on any medications currently. 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 Leonardo during the history and exam. I discussed the case with the resident and agree with the findings and plan as documented in the note. Any exceptions or clarifications are listed here: [None] Documented By: Cong Her Resident Tracking Resident Involvement: Resident Care Provided Care Provided: Adult Hospital Medicine
[2017-02-26] MEDS ORDERED: LORATADINE 10 MG TAB PO PRN (15:00)
--- NOTE | 2017-02-26 15:40 | Medical Consult ---
Consultation Date of Consultation: Feb 26, 2017. Attending Physician: Ceci Burgos MD Reason for Consultation: Oral fungal infection History of Present Illness 71-year-old female well known to me from outpatient infectious disease consultation, with history of diabetes mellitus, who was being followed for resistant oral candidiasis, not responding to treatment with clotrimazole and fluconazole. Has had progressively worsening shortness of breath, difficulty swallowing. recently had culture from mouth which showed Monica albicans. Because of poor response to previous antifungal therapy, patient recently started on IV caspofungin. Because of persistent symptoms, patient underwent EGD, with complication of acute laryngospasm and hypoxia requiring admission to the hospital for further management. Chest x-ray, read by me, shows possibility of new infiltrate in the left lower lobe consistent with aspiration. Patient currently awake alert, denies severe shortness of breath, has mild cough. No significant chest pain. Past Medical/Surgical History Medical Problems: (1) Hypoxia Status: Acute (2) PNA (pneumonia) Status: Acute Medical Problems: (1) Anxiety (2) Bronchospasm (3) Depression (4) Diabetes (5) Hypertension (6) Laryngospasm Surgical Problems: (1) H/O: hysterectomy Family History Cancer Hypertension Social History Smoking Status: Never Smoker Drug Use: none Marital Status: Housing Status: lives alone Occupation Status: retired Allergies Coded Allergies: Rituximab (Verified Allergy, Severe, STRESSES BODY LEAD TO [place]/INCREASED DEPRESSION, 02/26/17) Penicillins (Verified Allergy, Intermediate, RASH, 02/18/17) Povidone Iodine (Verified Allergy, Intermediate, RASH, 02/18/17) Golimumab (Verified Allergy, Unknown, SHORTNESS OF BREATH, 02/23/17) Latex1 -Allergic Contact Dermititis (Verified Allergy, Unknown, RASH, 02/18) Ondansetron (Verified Allergy, Unknown, SEIZURE-LIKE ACTIVITY, 02/23/17) "IT REACTED WITH LEXAPRO" Sorbitan (Verified Allergy, Unknown, SHORTNESS OF BREATH, 02/23/17) Current Inpatient Medications Current Inpatient Medications Medications (Trade) Dose Ordered Sig/Danny Route Start Time Stop Time Status Last Admin Dose Admin Sodium Chloride 500 ml @ 15 mls/hr Q24H ONCE IV 02/26/17 08:42 02/27/17 08:41 Acetaminophen (Tylenol Tab) 650 mg Q4H PRN PO 02/26/17 10:45 03/28/17 10:44 02/26/17 13:06 650 MG Al Hydrox/Mg Hydrox/Simethicone (Maalox Max Susp) 15 ml Q4H PRN PO 02/26/17 10:45 03/28/17 10:44 Magnesium Hydroxide (Milk Of Magnesia Susp) 30 ml Q12H PRN PO 02/26/17 10:45 03/28/17 10:44 Polyethylene (Miralax Powder Packet) 17 gm DAILY PRN PO 02/26/17 10:45 03/28/17 10:44 Racepinephrine (Raccemic Epinephrine 2.25% 0.5ML Neb) 0.5 ml Q4R INH 02/26/17 16:00 03/28/17 15:59 Dexamethasone Sodium Phosphate 8 mg/Syringe 2 ml @ 1 mls/min Q8H IV 02/26/17 14:00 03/28/17 11:29 02/26/17 14:44 1 MLS/MIN Miscellaneous (Iv Fluids Completed) 1 ea PRN PRN N/A 02/26/17 11:30 02/26/18 11:29 Sodium Chloride 1,000 ml @ 75 mls/hr [id number] IV 02/26/17 13:00 03/28/17 11:28 02/26/17 13:06 75 MLS/HR Albuterol Sulfate (Ventolin 0.083% 2.5MG/3ML Neb) 2.5 mg Q2H PRN INH 02/26/17 11:45 03/28/17 11:44 Caspofungin 50 mg/ Sodium Chloride 260 ml @ 250 mls/hr DAILY IV 02/27/17 09:00 03/04/17 00:01 Miscellaneous (Iv Fluids Completed) 1 ea PRN PRN N/A 02/26/17 12:45 02/26/18 12:44 Nitroglycerin (Nitrostat Tab) 0.4 mg PRN PRN SL 02/26/17 14:15 03/28/17 14:14 Review of Systems Constitutional: + weight loss, + fatigue, No fever, No chills Eyes: No problem reported ENT: + trouble swallowing Respiratory: + wheezing, + shortness of breath, + dyspnea on exertion Cardiovascular: No problem reported Abdomen: No problem reported Musculoskeletal: + joint pain Genitourinary - Female: No problem reported Neurologic: No problem reported Psychiatric: No problem reported Endocrine: No problem reported Hematologic / Lymphatic: No problem reported Integumentary: No problem reported Allergic / Immunologic: No problem reported Physical Exam Date Time Temp Pulse Resp B/P (MAP) Pulse Ox O2 Delivery O2 Flow Rate FiO2 02/26/17 14:00 85 18 165/88 (113) 95 Nasal Cannula 2.0 02/26/17 12:47 36.4 88 16 166/77 96 Nasal Cannula 2.0 02/26/17 12:10 86 20 165/81 (109) 99 Nasal Cannula 4 02/26/17 11:55 82 20 152/82 (105) 100 Oxymask 10 02/26/17 11:40 73 20 134/73 (93) 98 Oxymask 10 02/26/17 11:25 74 18 159/ (52) 98 Oxymask 10 02/26/17 11:10 85 18 160/82 (108) 98 Oxymask 10 02/26/17 10:55 84 22 160/77 (104) 98 Oxymask 10 98 02/26/17 10:40 89 20 164/78 (106) 98 Oxymask 10 98 02/26/17 08:05 36.6 68 16 173/75 (107) 98 Room Air General Appearance: WD/WN, no apparent distress Head: normocephalic, atraumatic Eyes: normal inspection, EOMI, sclerae normal ENT: hearing grossly normal, + pertinent finding (Tongue coated with whitish brown material) Neck: supple, no adenopathy, thyroid normal, trachea midline Respiratory/Chest: chest non-tender, no respiratory distress, no accessory muscle use, + wheezing Cardiovascular: regular rate, rhythm, no gallop, no murmur Abdomen/GI: normal bowel sounds, non tender, soft, no organomegaly Back: normal inspection, no CVA tenderness Extremities/Musculoskelatal: normal inspection, no calf tenderness, normal capillary refill Neurologic/Psych: alert, oriented x 3 Skin: normal color, warm/dry, no rash Lymphatic: no adenopathy Laboratory Results CHEST ONE VIEW PORTABLE CLINICAL HISTORY: Laryngospasm - Dyspnea dyspnea COMPARISON STUDY: 11/17/2015 FINDINGS: Interval parenchymal infiltrate left mid to lower lung. Trace pleural effusion left base. Right lung is clear. There is been placement of a PICC catheter in superior vena cava. No evidence pneumothorax. IMPRESSION: Parenchymal infiltrate left mid to lower lung. Small left pleural effusion. PICC catheter in the superior vena cava. The above report was generated using voice recognition software. It may contain grammatical, syntax or spelling errors. Electronically signed by: Giorgi Menezes M.D. 02/26/2017 11:46 AM Dictated Date/Time: 02/26/2017 11:45 AM The Assessment & Plan 71-year-old female patient treated for oral candidiasis with caspofungin, now admitted to the ICU with acute laryngospasm and hypoxia, now improved. Chest x- ray shows possible developing left lower lobe pneumonia, would recommend institution of antibiotics with ertapenem given penicillin allergy. Would continue for now caspofungin. Do not think her fungal infection is causing her ongoing respiratory complaints. Will discuss with all involved. Will follow.
[2017-02-26] MEDS: RACEPINEPHRINE 2.25% NEBU SOLN 0.5 ML VIAL INH SCH ×3 (15:49→23:51)
--- NOTE | 2017-02-26 17:08 | Medical Consult ---
Consultation Date of Consultation: Feb 26, 2017. Attending Physician: Ceci Burgos MD History of Present Illness 71 yo female with uncontrolled RA who is admitted to the ICU after an EDG today where she had a suspected laryngospasm, desaturation event. She recovered well and was transferred to ICU for observation. She states that she has seen Dr. Ellis in [place] on three separate occasions for the same thing in the past. She states that he did not find anything out of the ordinary at that time. She states that previously when her RA was better controlled her voice and her breathing were much better. She states that she had to stop her RA medication due to side effects and since that time she has had worsening of her voice and intermittent bouts of throat tightness and dyspnea. She states at rest she has no difficulty breathing. She states that if she does walk briskly or exerts herself she can have some mild dyspnea. Her breathing becomes the worst when she has an episode of throat tightness. She states it happens intermittently and she cannot pin point any particular triggers. She denies recent neck trauma. Denies recent intubation, denies prolonged intubation. No recent history of neck surgery. No history of thyroid surgery. She states that she had been taking nitroglycerine when she had these spasm attacks which she states seems to help. Past Medical/Surgical History Medical Problems: (1) Hypoxia Status: Acute (2) PNA (pneumonia) Status: Acute Family History Cancer Hypertension Social History Smoking Status: Never Smoker Drug Use: none Marital Status: Housing Status: lives alone Occupation Status: retired Allergies Coded Allergies: Rituximab (Verified Allergy, Severe, STRESSES BODY LEAD TO [place]/INCREASED DEPRESSION, 02/26/17) Penicillins (Verified Allergy, Intermediate, RASH, 02/18/17) Povidone Iodine (Verified Allergy, Intermediate, RASH, 02/18/17) Golimumab (Verified Allergy, Unknown, SHORTNESS OF BREATH, 02/23/17) Latex1 -Allergic Contact Dermititis (Verified Allergy, Unknown, RASH, 02/18) Ondansetron (Verified Allergy, Unknown, SEIZURE-LIKE ACTIVITY, 02/23/17) "IT REACTED WITH LEXAPRO" Sorbitan (Verified Allergy, Unknown, SHORTNESS OF BREATH, 02/23/17) Current Inpatient Medications Current Inpatient Medications Medications (Trade) Dose Ordered Sig/Danny Route Start Time Stop Time Status Last Admin Dose Admin Sodium Chloride 500 ml @ 15 mls/hr Q24H ONCE IV 02/26/17 08:42 02/27/17 08:41 Acetaminophen (Tylenol Tab) 650 mg Q4H PRN PO 02/26/17 10:45 03/28/17 10:44 02/26/17 13:06 650 MG Al Hydrox/Mg Hydrox/Simethicone (Maalox Max Susp) 15 ml Q4H PRN PO 02/26/17 10:45 03/28/17 10:44 Magnesium Hydroxide (Milk Of Magnesia Susp) 30 ml Q12H PRN PO 02/26/17 10:45 03/28/17 10:44 Polyethylene (Miralax Powder Packet) 17 gm DAILY PRN PO 02/26/17 10:45 03/28/17 10:44 Racepinephrine (Raccemic Epinephrine 2.25% 0.5ML Neb) 0.5 ml Q4R INH 02/26/17 16:00 03/28/17 15:59 02/26/17 15:49 0.5 ML Dexamethasone Sodium Phosphate 8 mg/Syringe 2 ml @ 1 mls/min Q8H IV 02/26/17 14:00 03/28/17 11:29 02/26/17 14:44 1 MLS/MIN Miscellaneous (Iv Fluids Completed) 1 ea PRN PRN N/A 02/26/17 11:30 02/26/18 11:29 Sodium Chloride 1,000 ml @ 75 mls/hr [id number] IV 02/26/17 13:00 03/28/17 11:28 02/26/17 13:06 75 MLS/HR Albuterol Sulfate (Ventolin 0.083% 2.5MG/3ML Neb) 2.5 mg Q2H PRN INH 02/26/17 11:45 03/28/17 11:44 Caspofungin 50 mg/ Sodium Chloride 260 ml @ 250 mls/hr DAILY IV 02/27/17 09:00 03/04/17 00:01 Miscellaneous (Iv Fluids Completed) 1 ea PRN PRN N/A 02/26/17 12:45 02/26/18 12:44 Nitroglycerin (Nitrostat Tab) 0.4 mg PRN PRN SL 02/26/17 14:15 03/28/17 14:14 Escitalopram Oxalate (Lexapro Tab) 10 mg QAM PO 02/27/17 09:00 03/29/17 08:59 Levothyroxine Sodium (Synthroid Tab) 75 mcg DAILYBB PO 02/27/17 06:00 03/29/17 05:59 Loratadine (Claritin Tab) 10 mg DAILY PRN PO 02/26/17 15:00 03/28/17 14:59 Multivitamins (Multivitamin Tab) 1 tab DAILY PO 02/27/17 09:00 03/29/17 08:59 Propranolol HCl (Inderal Tab) 30 mg HS PO 02/26/17 21:00 03/28/17 20:59 Rosuvastatin Calcium (Crestor Tab) 10 mg HS PO 02/26/17 21:00 03/28/17 20:59 Buspirone HCl (Buspar Tab) 10 mg HS PO 02/26/17 21:00 03/28/17 20:59 Calcium/Vitamin D (Caltrate Plus Tab) 1 tab DAILY PO 02/27/17 09:00 03/29/17 08:59 Pantoprazole Sodium (Protonix Tab) 40 mg QAM PO 02/27/17 09:00 03/29/17 08:59 Miscellaneous Information (Order Awaiting Action) 1 ea QS N/A 02/27/17 00:00 03/29/17 00:00 Review of Systems Constitutional: No fever, No chills, No sweats, No weight loss, No weakness, No fatigue, No problem reported Eyes: No worsening of vision, No eye pain, No redness, No discharge, No diplopia, No problem reported ENT: + problem reported (see HPI) Respiratory: No cough, No sputum, No wheezing, No shortness of breath, No dyspnea on exertion, No dyspnea at rest, No hemoptysis, No problem reported Cardiovascular: No chest pain, No orthopnea, No PND, No edema, No claudication , No palpitations, No problem reported Abdomen: No pain, No nausea, No vomiting, No diarrhea, No constipation, No GI bleeding, No problem reported Musculoskeletal: + problem reported (RA) Neurologic: No memory loss, No paralysis, No weakness, No numbness/tingling, No vertigo, No balance problems, No problem reported Physical Exam Date Time Temp Pulse Resp B/P (MAP) Pulse Ox O2 Delivery O2 Flow Rate FiO2 02/26/17 15:49 112 18 95 Nasal Cannula 2.0 02/26/17 14:00 85 18 165/88 (113) 95 Nasal Cannula 2.0 02/26/17 12:47 36.4 88 16 166/77 96 Nasal Cannula 2.0 02/26/17 12:10 86 20 165/81 (109) 99 Nasal Cannula 4 02/26/17 11:55 82 20 152/82 (105) 100 Oxymask 10 02/26/17 11:40 73 20 134/73 (93) 98 Oxymask 10 02/26/17 11:25 74 18 159/ (52) 98 Oxymask 10 02/26/17 11:10 85 18 160/82 (108) 98 Oxymask 10 02/26/17 10:55 84 22 160/77 (104) 98 Oxymask 10 98 02/26/17 10:40 89 20 164/78 (106) 98 Oxymask 10 98 02/26/17 08:05 36.6 68 16 173/75 (107) 98 Room Air PROCEDURE: Fiberoptic laryngoscopy revealed normal supraglottis with no masses or lesions. Post cricoid space normal. Patient has a widely patent glottic airway. Vocal cord mobility in ADDuction is normal. Vocal cord mobility in ABduction appears slightly restricted but the glottic airway remains widely patent on exam today. No vocal cord masses or lesions. Patient tolerated procedure well. General Appearance: WD/WN, no apparent distress, + pertinent finding (sitting in bed. Breathing quietly. No stridor, no noisy breathing. ) Head: normocephalic, atraumatic Eyes: normal inspection, PERRL, EOMI ENT: normal ENT inspection, pharynx normal, + pertinent finding (Hoarseness noted. 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 She states emphatically that she felt much better from a voice and breathing standpoint while on active RA treatment. - thus would recommend Rheumatology evaluation sooner than later (either inpatient or outpatient) - recommend patient keep log of the things that cause her to get the bouts of laryngospasm so she may avoid them - recommend follow up in my office for videostroboscopy for a more formal eval of her larynx. - my office will contact her next week to set up appointment
[2017-02-26 17:54] LABS: COMPLETE YES; HEMATOCRIT 39.6 % (37-47); IG% 0.1 %; LYMPH % 10.2 %; LYMPH ABS # 0.69 K/uL (1.2-3.4); MEAN CELL VOLUME 89.8 fL (80-100); MEAN CORPUSCULAR HEMOGLOBIN 29.5 pg (25-34); MEAN CORPUSCULAR HGB CONC 32.8 g/dl (32-36); MONO % 0.7 %; PLATELET COUNT 245 K/uL (130-400); RED BLOOD COUNT 4.41 M/uL (4.2-5.4); WHITE BLOOD COUNT 6.74 K/uL (4.8-10.8)
--- NOTE | 2017-02-26 17:55 | DIAGNOSTIC IMAGING REPORT ---
CHEST 2 VIEWS ROUTINE HISTORY: 71 years-old Female ? PNA follow-up study in a patient with dyspnea and concern for pneumonia. COMPARISON: Chest radiograph 02/26/2017 at 11:35 AM TECHNIQUE: PA and lateral views of the chest FINDINGS: Patient is slightly rotated to the right. Left-sided PICC is again noted with distal tip terminating in the region of the superior aspect SVC. Atherosclerosis of the aorta. Cardiac silhouette is within normal limits. There is improved aeration of the left lung. Mild background interstitial coarsening without pneumothorax or large pleural effusion. Mild left hemidiaphragmatic elevation persists with linear subsegmental left basilar opacities. The bones are grossly intact. IMPRESSION: 1. Improved aeration of the left lung with minimal linear subsegmental left basilar opacities suggesting atelectasis or scarring. 2. Stable positioning of left-sided PICC. The above report was generated using voice recognition software. It may contain grammatical, syntax or spelling errors. Electronically signed by: Nolan Gordillo M.D. 02/26/2017 5:53 PM Dictated Date/Time: 02/26/2017 5:51 PM
[2017-02-26 18:05] LABS: PROTHROMBIN TIME (PATIENT) 10.6 SECONDS (9.0-12.0)
[2017-02-26 19:02] LABS: BUN/CREATININE RATIO 8.3 (10-20); CALCIUM 8.5 mg/dl (8.5-10.1); CREATININE 0.69 mg/dl (0.60-1.20); POTASSIUM 3.2 mmol/L (3.5-5.1)
[2017-02-26] MEDS ORDERED: GLUCAGON FOR INJ 1 MG VIAL SQ PRN (19:45)
[2017-02-26] MEDS ORDERED: GLUCOSE 40% GEL 15 GM TUBE PO PRN (19:45)
[2017-02-26] MEDS ORDERED: GLUCOSE 10 TABS/TUBE PO PRN (19:45)
[2017-02-26] MEDS ORDERED: DEXTROSE 50% 50 ML SYR IV PRN (19:45)
[2017-02-26] MEDS ORDERED: POTASSIUM CHLORIDE 20 MEQ TABCR PO STA (19:52)
--- NOTE | 2017-02-26 20:00 | Rheumatology Consultation ---
Rheumatology Consultation Date of Consultation: Feb 26, 2017. Requesting Physician: Dr Burgos Attending Physician: Dr Burgos Reason for Consultation: RA - recent laryngeal spasms during EGD, cricopharyngeal inflammation from RA History of Present Illness Luci was admitted today after developing laryngeal spasms during EGD for several week history of dysphagia. she reports to me a long standing history of RA dating back at least 20 to 26 years. she was followed by Dr Hill for many years until she left the [facility] and then started to see Dr Bear in the [facility]. she reports she thinks he will be retiring soon. she mentions her arthritis gas mainly been in her hands and knees. she reports use of plaquenil - caused rash, MTX did not help, not sure if she took arava but the name sound familiar. she also has used enbrel, humira, actemra,orencia, rituxan , xeljanz and more recently simponi IV. she states that these agents either did not work or caused side effects. Rituxan she reports did work but she developed a weird reaction several weeks to months later that they eventually blamed on it. actemra caused tachycardia, and more recently simponi caused hypertension. she reports that simponi did help and made her feel 60% better. she stopped this in November this year. she also was diagnosed with oral brenda recently and her prednisoine was stopped after failing treatment for the brenda with oral treatments. she is now on caspofungin for 10 days IV. she is on day 7 of this treatment. she does have an immunodeficiency and gets IVIG through Dr Hoffmann. she reports injections to her knees in the recent past that did not help. 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 she states her labs for RA have been negative for RF and CCP but her sed rate has been elevated. today after developing hypoxemia related to laryngeal spasms, ENT evaluated her trachea and noted inflammation at the level of the hyoid bone and wondered if related to RA and suggested rheumatology eval. she was given IV decadron and other agents and the laryngeal spasm resolved but she ended up in the ICU but is awaiting transfer to the floor. she is resting comfortably wearing O2 with no tachypnea. she states that over the last few months she has been dealing with intermittent dysphagia that had responded to nitro more than anything else and that us why she was getting the EGD today. the EGD was normal. as for her joints - mainly gets swelling at the PIPs, knees. she is stiff for 1 hr each day. Labs, imaging and other notes reviewed. 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), allergies) Surgical History: EGD Family History uncle with RA, sister with OA Social History Smoking Status: Never Smoker History of Alcohol Use: No Drug Use: none Marital Status: Occupation Status: retired Review of Systems Constitutional: No fever, No chills ENT: + see HPI, + trouble swallowing Respiratory: + see HPI Cardiac: + see HPI, No chest pain, No edema Abdomen: No pain, No nausea Musculoskeletal: + see HPI All Other Systems: Reviewed and Negative Allergies Coded Allergies: Rituximab (Verified Allergy, Severe, STRESSES BODY LEAD TO KS/INCREASED DEPRESSION, 02/26/17) Penicillins (Verified Allergy, Intermediate, RASH, 02/18/17) Povidone Iodine (Verified Allergy, Intermediate, RASH, 02/18/17) Golimumab (Verified Allergy, Unknown, SHORTNESS OF BREATH, 02/23/17) Latex1 -Allergic Contact Dermititis (Verified Allergy, Unknown, RASH, 02/18) Ondansetron (Verified Allergy, Unknown, SEIZURE-LIKE ACTIVITY, 02/23/17) "IT REACTED WITH LEXAPRO" Sorbitan (Verified Allergy, Unknown, SHORTNESS OF BREATH, 02/23/17) Medications Current Inpatient Medications Medications (Trade) Dose Ordered Sig/Danny Route Start Time Stop Time Status Last Admin Dose Admin Sodium Chloride 500 ml @ 15 mls/hr Q24H ONCE IV 02/26/17 08:42 02/27/17 08:41 Acetaminophen (Tylenol Tab) 650 mg Q4H PRN PO 02/26/17 10:45 03/28/17 10:44 02/26/17 13:06 650 MG Al Hydrox/Mg Hydrox/Simethicone (Maalox Max Susp) 15 ml Q4H PRN PO 02/26/17 10:45 03/28/17 10:44 Magnesium Hydroxide (Milk Of Magnesia Susp) 30 ml Q12H PRN PO 02/26/17 10:45 03/28/17 10:44 Polyethylene (Miralax Powder Packet) 17 gm DAILY PRN PO 02/26/17 10:45 03/28/17 10:44 Racepinephrine (Raccemic Epinephrine 2.25% 0.5ML Neb) 0.5 ml Q4R INH 02/26/17 16:00 03/28/17 15:59 02/26/17 15:49 0.5 ML Dexamethasone Sodium Phosphate 8 mg/Syringe 2 ml @ 1 mls/min Q8H IV 02/26/17 14:00 03/28/17 11:29 02/26/17 14:44 1 MLS/MIN Miscellaneous (Iv Fluids Completed) 1 ea PRN PRN N/A 02/26/17 11:30 02/26/18 11:29 Sodium Chloride 1,000 ml @ 75 mls/hr [id number] IV 02/26/17 13:00 03/28/17 11:28 02/26/17 13:06 75 MLS/HR Albuterol Sulfate (Ventolin 0.083% 2.5MG/3ML Neb) 2.5 mg Q2H PRN INH 02/26/17 11:45 03/28/17 11:44 Caspofungin 50 mg/ Sodium Chloride 260 ml @ 250 mls/hr DAILY IV 02/27/17 09:00 03/04/17 00:01 Miscellaneous (Iv Fluids Completed) 1 ea PRN PRN N/A 02/26/17 12:45 02/26/18 12:44 Nitroglycerin (Nitrostat Tab) 0.4 mg PRN PRN SL 02/26/17 14:15 03/28/17 14:14 Escitalopram Oxalate (Lexapro Tab) 10 mg QAM PO 02/27/17 09:00 03/29/17 08:59 Levothyroxine Sodium (Synthroid Tab) 75 mcg DAILYBB PO 02/27/17 06:00 03/29/17 05:59 Loratadine (Claritin Tab) 10 mg DAILY PRN PO 02/26/17 15:00 03/28/17 14:59 Multivitamins (Multivitamin Tab) 1 tab DAILY PO 02/27/17 09:00 03/29/17 08:59 Propranolol HCl (Inderal Tab) 30 mg HS PO 02/26/17 21:00 03/28/17 20:59 Rosuvastatin Calcium (Crestor Tab) 10 mg HS PO 02/26/17 21:00 03/28/17 20:59 Buspirone HCl (Buspar Tab) 10 mg HS PO 02/26/17 21:00 03/28/17 20:59 Calcium/Vitamin D (Caltrate Plus Tab) 1 tab DAILY PO 02/27/17 09:00 03/29/17 08:59 Pantoprazole Sodium (Protonix Tab) 40 mg QAM PO 02/27/17 09:00 03/29/17 08:59 Miscellaneous Information (Order Awaiting Action) 1 ea QS N/A 02/27/17 00:00 03/29/17 00:00 Physical Exam Date Time Temp Pulse Resp B/P (MAP) Pulse Ox O2 Delivery O2 Flow Rate FiO2 02/26/17 16:00 36.4 90 26 163/78 (106) 97 Nasal Cannula 2.0 02/26/17 16:00 95 Nasal Cannula 2.0 02/26/17 15:49 112 18 95 Nasal Cannula 2.0 02/26/17 14:00 85 18 165/88 (113) 95 Nasal Cannula 2.0 02/26/17 12:47 36.4 88 16 166/77 96 Nasal Cannula 2.0 02/26/17 12:10 86 20 165/81 (109) 99 Nasal Cannula 4 02/26/17 11:55 82 20 152/82 (105) 100 Oxymask 10 02/26/17 11:40 73 20 134/73 (93) 98 Oxymask 10 02/26/17 11:25 74 18 159/ (52) 98 Oxymask 10 02/26/17 11:10 85 18 160/82 (108) 98 Oxymask 10 02/26/17 10:55 84 22 160/77 (104) 98 Oxymask 10 98 02/26/17 10:40 89 20 164/78 (106) 98 Oxymask 10 98 02/26/17 08:05 36.6 68 16 173/75 (107) 98 Room Air General Appearance: WD/WN, no apparent distress Eyes: bilateral eyes normal inspection, bilateral eyes EOMI ENT: hearing grossly normal, pharynx normal, + pertinent finding (no signs of brenda infection/oral thrush) Neck: supple, no adenopathy Respiratory: chest non-tender, lungs clear, + pertinent finding (upper airway sounds heard) Cardiovascular: regular rate, rhythm, no edema, no gallop, no murmur Abdomen: normal bowel sounds, non tender, soft, no organomegaly Musculoskeletal: has enlargement of all PIPs with some mild tenderness, ? synovitis at the right 5th PIP No MCP subluxation, ulnar deviation or synovial thickening. Mild right knee medial joint line pain + crepitus with ext/flex both knees no knee effusions Neurologic/Psychiatric: alert, normal mood/affect, oriented x 3 Skin: normal color, warm/dry, no rash Laboratory Results Last 24 Hours Test 02/26/17 17:43 White Blood Count 6.74 K/uL Red Blood Count 4.41 M/uL Hemoglobin 13.0 g/dL Hematocrit 39.6 % Mean Corpuscular Volume 89.8 fL Mean Corpuscular Hemoglobin 29.5 pg Mean Corpuscular Hemoglobin Concent 32.8 g/dl Platelet Count 245 K/uL Mean Platelet Volume 11.0 fL Neutrophils (%) (Auto) 89.0 % Lymphocytes (%) (Auto) 10.2 % Monocytes (%) (Auto) 0.7 % Eosinophils (%) (Auto) 0.0 % Basophils (%) (Auto) 0.0 % Neutrophils # (Auto) 5.99 K/uL Lymphocytes # (Auto) 0.69 K/uL Monocytes # (Auto) 0.05 K/uL Eosinophils # (Auto) 0.00 K/uL Basophils # (Auto) 0.00 K/uL RDW Standard Deviation 47.2 fL RDW Coefficient of Variation 14.3 % Immature Granulocyte % (Auto) 0.1 % Immature Granulocyte # (Auto) 0.01 K/uL Prothrombin Time 10.6 SECONDS Prothromb Time International Ratio 1.0 Activated Partial Thromboplast Time 27.1 SECONDS Partial Thromboplastin Ratio 1.0 Sodium Level 141 mmol/L Potassium Level 3.2 mmol/L Chloride Level 108 mmol/L Carbon Dioxide Level 24 mmol/L Anion Gap 9.0 mmol/L Blood Urea Nitrogen 6 mg/dl Creatinine 0.69 mg/dl Est Creatinine Clear Calc Drug Dose 65.3 ml/min Estimated GFR () 101.5 Estimated GFR (Non- 87.6 BUN/Creatinine Ratio 8.3 Random Glucose 170 mg/dl Calcium Level 8.5 mg/dl Assessment & Plan Assessment & Plan: Assessment: Luci is a 71 y/o female with 20+ yr history of seronegative RA that has tried and failed/inolerant of multiple anti-rheumatic medications. she developed laryngeal spasms and desaturation during EGD today felt to be related to cricoid/hyoid inflammation related to her RA. she has already received IV decadron. Her RA management is going to be difficult given the amount of agents she has already tried and failed. The only biologic agent she has not tried ( but she is not 100% sure) is cimzia and the only oral agent is sulfasalazine and possible arava. 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 I discussed with her getting back on steroids for now and either using cimzia vs dual oral therapy with MTX, arava or arava/ ssz. I contacted hospitalist Dr Burgos and discussed as well Plan: 1. switch to oral prednisone starting at 30mg and do follwoing taper - 30mg daily for 4 days, 20mg daily for 4 days, 10mg daily for 4 days then 5mg daily 2. abx and antifungals as per ID 3. asked her to have outside records sent to my office - I gave a card with my fax number on it 4. consider cimzia vs dual oral therapy once records reviewed 5. thank you for the consult and involving me in this patient's care 6. I will arrange out patient follow up with me in 1-2 weeks
[2017-02-26] MEDS: INSULIN ASPART 100 UNITS/ML 3 ML PEN SC SCH (20:19)
[2017-02-26] MEDS: ROSUVASTATIN CALCIUM 10 MG TAB PO SCH (20:21)
[2017-02-26] MEDS: PROPRANOLOL HCL 20 MG TAB PO SCH (20:22)
[2017-02-27] VITALS (15 sets, daily range): BP systolic 130–167; BP diastolic 58–84; PULSE 53–77; TEMP 36.3–36.9; O2SAT 92–99
[2017-02-27] MEDS: SODIUM CHLORIDE 0.9% 1000ML 1,000 ML IV SCH ×2 (01:51→16:14)
[2017-02-27] MEDS: RACEPINEPHRINE 2.25% NEBU SOLN 0.5 ML VIAL INH SCH ×6 (04:14→22:30)
[2017-02-27] MEDS: LEVOTHYROXINE 75 MCG TAB PO SCH (05:49)
[2017-02-27 06:40] LABS: BASO % 0.1 %; BASO ABS # 0.01 K/uL (0-0.2); COMPLETE YES; HEMATOCRIT 33.9 % (37-47); IG% 0.3 %; LYMPH % 15.5 %; LYMPH ABS # 1.15 K/uL (1.2-3.4); MEAN CELL VOLUME 89.7 fL (80-100); MEAN CORPUSCULAR HEMOGLOBIN 29.4 pg (25-34); MEAN CORPUSCULAR HGB CONC 32.7 g/dl (32-36); MEAN PLATELET VOLUME 11.3 fL (7.4-10.4); MONO % 5.5 %; NEUT % 78.6 %; PLATELET COUNT 218 K/uL (130-400); RED BLOOD COUNT 3.78 M/uL (4.2-5.4); WHITE BLOOD COUNT 7.44 K/uL (4.8-10.8)
[2017-02-27] MEDS: INSULIN ASPART 100 UNITS/ML 3 ML PEN SC SCH ×4 (07:00→21:00)
[2017-02-27 07:16] LABS: BUN/CREATININE RATIO 10.9 (10-20); CALCIUM 7.8 mg/dl (8.5-10.1); CREATININE 0.53 mg/dl (0.60-1.20); MAGNESIUM 1.8 mg/dl (1.8-2.4); POTASSIUM 3.6 mmol/L (3.5-5.1)
[2017-02-27 07:17] LABS: PHOSPHORUS 2.9 mg/dl (2.5-4.9)
[2017-02-27 07:46] LABS: ESTIMATED AVERAGE GLUCOSE 117 mg/dl; HA1C FLAG Normal (Normal)
[2017-02-27] MEDS: PANTOprazole SOD 40 MG TAB PO SCH (09:24)
[2017-02-27] MEDS: CALCIUM 600MG + VIT D 400 IU TAB PO SCH (09:25)
[2017-02-27] MEDS: ESCITALOPRAM OXALATE 10 MG TAB PO SCH (09:25)
[2017-02-27] MEDS: MULTIVITAMIN TAB PO SCH (09:25)
[2017-02-27] MEDS: CASPOFUNGIN INJ 50 MG in SODIUM CHLORIDE 0.9% 250ML 250 ML IV SCH ×2 (10:48→10:52)
[2017-02-27] MEDS ORDERED: NURSING VERBAL MED ORDER ONE ×2 (12:15→12:45)
[2017-02-27] MEDS: LACTOBACILLUS ACIDOPHILUS (FLORANEX) TAB PO SCH (14:20)
--- NOTE | 2017-02-27 18:28 | Progress Note ---
Subjective Date of Service: Feb 27, 2017. Subjective Pt evaluation today including: conversation w/ patient, physical exam, chart review, lab review, review of studies, review of inpatient medication list Voiding: no voiding problems Pt is seen and examined.Pt has some sob but denies dizziness, chest pain, nausea , vomiting and diarrhea.Pt denies any more laryngeal spasm since yesterday morning. Problem List Medical Problems: (1) Hypoxia Status: Acute (2) PNA (pneumonia) Status: Acute Review of Systems Constitutional: + weight loss, + fatigue, No fever, No chills ENT: + trouble swallowing Respiratory: + wheezing, + shortness of breath, + dyspnea on exertion Cardiovascular: No problem reported Abdomen: No problem reported Musculoskeletal: + joint pain Genitourinary - Female: No problem reported Neurologic: No problem reported Endocrine: No problem reported Allergic / Immunologic: No problem reported Medications Medications (Trade) Dose Ordered Sig/Danny Route Start Time Stop Time Status Last Admin Dose Admin Racepinephrine (Raccemic Epinephrine 2.25% 0.5ML Neb) 0.5 ml Q4R INH 02/26/17 16:00 03/28/17 15:59 02/27/17 07:39 0.5 ML Dexamethasone Sodium Phosphate 8 mg/Syringe 2 ml @ 1 mls/min Q8H IV 02/26/17 14:00 02/26/17 23:59 DC 02/26/17 21:53 1 MLS/MIN Sodium Chloride 1,000 ml @ 75 mls/hr [id number] IV 02/26/17 13:00 03/28/17 11:28 02/27/17 01:51 75 MLS/HR Caspofungin 50 mg/ Sodium Chloride 260 ml @ 250 mls/hr DAILY IV 02/27/17 09:00 02/27/17 13:00 02/27/17 10:52 250 MLS/HR Caspofungin 50 mg/ Sodium Chloride 260 ml @ 250 mls/hr NOW ONCE IV 02/26/17 13:00 02/26/17 14:02 DC 02/26/17 13:06 250 MLS/HR Escitalopram Oxalate (Lexapro Tab) 10 mg QAM PO 02/27/17 09:00 03/29/17 08:59 02/27/17 09:25 10 MG Levothyroxine Sodium (Synthroid Tab) 75 mcg DAILYBB PO 02/27/17 06:00 03/29/17 05:59 02/27/17 05:49 75 MCG Multivitamins (Multivitamin Tab) 1 tab DAILY PO 02/27/17 09:00 03/29/17 08:59 02/27/17 09:25 1 TAB Propranolol HCl (Inderal Tab) 30 mg HS PO 02/26/17 21:00 03/28/17 20:59 02/26/17 20:22 30 MG Rosuvastatin Calcium (Crestor Tab) 10 mg HS PO 02/26/17 21:00 03/28/17 20:59 02/26/17 20:21 10 MG Buspirone HCl (Buspar Tab) 10 mg HS PO 02/26/17 21:00 03/28/17 20:59 02/26/17 20:22 10 MG Calcium/Vitamin D (Caltrate Plus Tab) 1 tab DAILY PO 02/27/17 09:00 03/29/17 08:59 02/27/17 09:25 1 TAB Pantoprazole Sodium (Protonix Tab) 40 mg QAM PO 02/27/17 09:00 03/29/17 08:59 02/27/17 09:24 40 MG Miscellaneous Information (Order Awaiting Action) 1 ea QS N/A 02/27/17 00:00 02/27/17 12:39 DC 02/26/17 23:56 1 EA Potassium Chloride (Klor-Con Tab) 40 meq NOW STAT PO 02/26/17 19:52 02/26/17 19:54 DC 02/26/17 20:20 40 MEQ Prednisone (PredniSONE TAB) 30 mg Taper DAILY PO 02/27/17 09:00 04/10/17 08:59 02/27/17 09:24 30 MG Objective Vital Signs Date Time Temp Pulse Resp B/P (MAP) Pulse Ox O2 Delivery O2 Flow Rate FiO2 02/27/17 08:04 36.3 75 18 130/70 (90) 94 Room Air 02/27/17 07:39 77 20 99 Nasal Cannula 2.0 02/27/17 04:17 36.4 75 18 150/76 (100) 97 Nasal Cannula 2.0 02/27/17 04:14 72 20 97 Nasal Cannula 2.0 02/27/17 04:00 Nasal Cannula 02/27/17 00:43 36.9 73 24 156/84 (108) 96 Nasal Cannula 2.0 02/27/17 00:00 Nasal Cannula 2.0 02/26/17 23:51 71 22 96 Nasal Cannula 2.0 02/26/17 20:01 104 20 166/76 (106) 100 Nasal Cannula 2.0 02/26/17 20:00 Nasal Cannula 2.0 02/26/17 19:49 75 21 96 Nasal Cannula 2.0 02/26/17 16:00 36.4 90 26 163/78 (106) 97 Nasal Cannula 2.0 02/26/17 16:00 95 Nasal Cannula 2.0 02/26/17 15:49 112 18 95 Nasal Cannula 2.0 02/26/17 14:00 85 18 165/88 (113) 95 Nasal Cannula 2.0 02/26/17 12:47 36.4 88 16 166/77 96 Nasal Cannula 2.0 02/26/17 12:10 86 20 165/81 (109) 99 Nasal Cannula 4 02/26/17 11:55 82 20 152/82 (105) 100 Oxymask 10 02/26/17 11:40 73 20 134/73 (93) 98 Oxymask 10 02/26/17 11:25 74 18 159/ (52) 98 Oxymask 10 02/26/17 11:10 85 18 160/82 (108) 98 Oxymask 10 02/26/17 10:55 84 22 160/77 (104) 98 Oxymask 10 98 02/26/17 10:40 89 20 164/78 (106) 98 Oxymask 10 98 Physical Exam Comments: General Appearance: WD/WN, no apparent distress Head: normocephalic, atraumatic Eyes: normal inspection, PERRL, EOMI ENT: normal ENT inspection, pharynx normal, +Hoarseness Neck: supple, no adenopathy Respiratory/Chest: no respiratory distress, no accessory muscle use, wheezing ( expiatory) in right lung field Cardiovascular: no edema, no gallop, no JVD 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 Skin: normal color, warm/dry Lymphatic: no adenopathy Laboratory Results Last 24 Hours Test 02/26/17 17:43 02/26/17 20:11 02/27/17 06:02/27/17 06:41 White Blood Count 6.74 K/uL 7.44 K/uL Red Blood Count 4.41 M/uL 3.78 M/uL Hemoglobin 13.0 g/dL 11.1 g/dL Hematocrit 39.6 % 33.9 % Mean Corpuscular Volume 89.8 fL 89.7 fL Mean Corpuscular Hemoglobin 29.5 pg 29.4 pg Mean Corpuscular Hemoglobin Concent 32.8 g/dl 32.7 g/dl Platelet Count 245 K/uL 218 K/uL Mean Platelet Volume 11.0 fL 11.3 fL Neutrophils (%) (Auto) 89.0 % 78.6 % Lymphocytes (%) (Auto) 10.2 % 15.5 % Monocytes (%) (Auto) 0.7 % 5.5 % Eosinophils (%) (Auto) 0.0 % 0.0 % Basophils (%) (Auto) 0.0 % 0.1 % Neutrophils # (Auto) 5.99 K/uL 5.85 K/uL Lymphocytes # (Auto) 0.69 K/uL 1.15 K/uL Monocytes # (Auto) 0.05 K/uL 0.41 K/uL Eosinophils # (Auto) 0.00 K/uL 0.00 K/uL Basophils # (Auto) 0.00 K/uL 0.01 K/uL RDW Standard Deviation 47.2 fL 47.2 fL RDW Coefficient of Variation 14.3 % 14.4 % Immature Granulocyte % (Auto) 0.1 % 0.3 % Immature Granulocyte # (Auto) 0.01 K/uL 0.02 K/uL Prothrombin Time 10.6 SECONDS Prothromb Time International Ratio 1.0 Activated Partial Thromboplast Time 27.1 SECONDS Partial Thromboplastin Ratio 1.0 Sodium Level 141 mmol/L 142 mmol/L Potassium Level 3.2 mmol/L 3.6 mmol/L Chloride Level 108 mmol/L 109 mmol/L Carbon Dioxide Level 24 mmol/L 24 mmol/L Anion Gap 9.0 mmol/L 9.0 mmol/L Blood Urea Nitrogen 6 mg/dl 6 mg/dl Creatinine 0.69 mg/dl 0.53 mg/dl Est Creatinine Clear Calc Drug Dose 65.3 ml/min 85.0 ml/min Estimated GFR () 101.5 110.7 Estimated GFR (Non- 87.6 95.5 BUN/Creatinine Ratio 8.3 10.9 Random Glucose 170 mg/dl 135 mg/dl Calcium Level 8.5 mg/dl 7.8 mg/dl Bedside Glucose 135 mg/dl 125 mg/dl Estimated Average Glucose 117 mg/dl Hemoglobin A1c 5.7 % Phosphorus Level 2.9 mg/dl Magnesium Level 1.8 mg/dl Assessment and Plan Assessment and Plan Ms. Rivera is a 71 y/o female with PMHx of Rheumatoid Arthritis, Chronic Dysphagia, Anxiety/Depression, GERD, HLD, Hypothyroidism, CAD S/P NSTEMI, H/O Gastric Ulcers, Chronic Diastolic CHF who experienced laryngospasm during EGD. Acute Hypoxic Respiratory Failure with Resp. Distress due to Laryngospasm: - Resolved - Was significantly hypoxic at 50% during EGD and required succs, decadron, racemic epi, versed, and nitro - EGD without significant findings to identify cause of dysphagia - Decadron 8 mg IV Q8H and Racemic Epi Q4H with Albuterol PRN - Will defer further antibiotics as repeat CXR with aeration improvement - Pulmonary and Intensivists consulted - appreciate assistance Chronic Dysphagia and Laryngospasm/GERD: - Initial question of fungal infection involvement and currently on Caspofungin 50 mg IV - will consult ID and appreciate further recommendations - ENT did laryngoscopy and no abnormalities, however the exam is limited. videostroboscopy for a more formal evaluation of her larynx in outpatient setting. - also ENT suggested RA treatment for further advancement of the disease. - Protonix 40 mg daily - patient is tolerating full liquids. Rheumatoid Arthritis: - Currently off treatment but previously on Simponi and was following with Dr. 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 - Documented in chart however patient states she is not diabetic or ever on anti -diabetic medication - Random glucose on BMP at 170 and plan to implement Decadron so will monitor BSGs and cover with SSI; obtain A1c CAD S/P NSTEMI and HTN: - Follows with cardiology - suggested NSTEMI was from Sepsis/PNA instead of a coronary process - HTN believed to be related to possible use of Simponi and has been monitored - No ASA due to H/O gastric ulcers - Propranolol 30 mg daily Anxiety/Depression: - Buspar 10 mg daily and Lexapro 10 mg daily Hypothyroidism: - Synthroid 75 mcg daily DVT Prophylaxis: SCDs; if here for multiple days can add Heparin Code Status: FULL RESUSCITATION Disposition: - possible D/C in 2-3 days Continued [facility] stay due to: other Discharge planning: uncertain
[2017-02-27] MEDS: ALBUTEROL 0.083% NEBU SOLN 3 ML VIAL INH PRN ×3 (18:29→22:31)
[2017-02-27] MEDS: PROPRANOLOL HCL 20 MG TAB PO SCH (21:34)
[2017-02-27] MEDS: POTASSIUM CHLORIDE 10 MEQ TABCR PO SCH (21:34)
[2017-02-27] MEDS: ROSUVASTATIN CALCIUM 10 MG TAB PO SCH (21:34)
[2017-02-28] VITALS (11 sets, daily range): BP systolic 166–206; BP diastolic 76–96; PULSE 61–77; TEMP 36.4–36.9; O2SAT 91–99
[2017-02-28] MEDS: ACETAMINOPHEN 325 MG TAB PO PRN ×2 (00:08→05:07)
[2017-02-28] MEDS ORDERED: LORAZEPAM 0.5 MG TAB PO STA (01:36)
[2017-02-28] MEDS: RACEPINEPHRINE 2.25% NEBU SOLN 0.5 ML VIAL INH SCH ×3 (02:23→12:00)
[2017-02-28] MEDS: SODIUM CHLORIDE 0.9% 1000ML 1,000 ML IV SCH (05:07)
[2017-02-28] MEDS: LEVOTHYROXINE 75 MCG TAB PO SCH (05:08)
[2017-02-28] MEDS: LEVALBUTEROL 0.63MG/3 ML NEB INH SCH ×4 (05:10→19:38)
[2017-02-28] MEDS ORDERED: NURSING VERBAL MED ORDER ONE ×2 (05:30→06:45)
[2017-02-28 06:40] LABS: BUN/CREATININE RATIO 13.3 (10-20); CREATININE 0.62 mg/dl (0.60-1.20); POTASSIUM 3.3 mmol/L (3.5-5.1)
[2017-02-28] MEDS: INSULIN ASPART 100 UNITS/ML 3 ML PEN SC SCH ×4 (07:00→21:00)
[2017-02-28] MEDS: ESCITALOPRAM OXALATE 10 MG TAB PO SCH (09:06)
[2017-02-28] MEDS: LACTOBACILLUS ACIDOPHILUS (FLORANEX) TAB PO SCH (09:06)
[2017-02-28] MEDS: MULTIVITAMIN TAB PO SCH (09:06)
[2017-02-28] MEDS: PANTOprazole SOD 40 MG TAB PO SCH (09:06)
[2017-02-28] MEDS: CALCIUM 600MG + VIT D 400 IU TAB PO SCH (09:06)
[2017-02-28] MEDS: CASPOFUNGIN INJ 50 MG in SODIUM CHLORIDE 0.9% 250ML 250 ML IV SCH (11:06)
--- NOTE | 2017-02-28 13:01 | Progress Note ---
Subjective Date of Service: Feb 28, 2017. Subjective Pt evaluation today including: conversation w/ patient, physical exam, chart review, lab review, review of studies, review of inpatient medication list Voiding: no voiding problems, no incontinence patient is doing well, little anxious. pt denies any laryngeal spasm overnight. Problem List Medical Problems: (1) Hypoxia Status: Acute (2) PNA (pneumonia) Status: Acute Review of Systems All Other Systems: Reviewed and Negative Medications Medications (Trade) Dose Ordered Sig/Danny Route Start Time Stop Time Status Last Admin Dose Admin Caspofungin 50 mg/ Sodium Chloride 260 ml @ 250 mls/hr DAILY@1100 IV 02/28/17 11:00 03/04/17 00:01 02/28/17 11:06 250 MLS/HR Lactobacillus Acidophilus (Floranex Tab) 4 tab DAILY PO 02/27/17 14:00 03/29/17 13:59 02/28/17 09:06 4 TAB Potassium Chloride (Klor-Con M10) 10 meq HS PO 02/27/17 21:00 03/29/17 20:59 02/27/17 21:34 10 MEQ Lorazepam (Ativan Tab) 0.5 mg NOW STAT PO 02/28/17 01:36 02/28/17 01:40 DC 02/28/17 01:48 0.5 MG Levalbuterol (Xopenex 0.63 Mg/ 3 Ml Neb) 0.63 mg Q6R INH 02/28/17 05:10 03/30/17 05:09 02/28/17 07:00 0.63 MG Objective Vital Signs Date Time Temp Pulse Resp B/P (MAP) Pulse Ox O2 Delivery O2 Flow Rate FiO2 02/28/17 12:00 Nasal Cannula 02/28/17 10:49 36.8 71 20 171/82 (111) 91 Room Air 02/28/17 08:00 Nasal Cannula 02/28/17 07:16 36.4 61 20 175/79 (111) 94 Nasal Cannula 2.0 02/28/17 07:00 75 20 99 Nasal Cannula 2.0 02/28/17 05:17 75 20 93 Nasal Cannula 2.0 02/28/17 04:38 36.8 67 20 206/96 (132) 92 Nasal Cannula 2.0 02/28/17 04:15 92 Nasal Cannula 02/28/17 00:00 92 Room Air 02/27/17 23:15 36.4 53 18 167/58 (94) 92 Room Air 02/27/17 22:31 59 16 97 Room Air 02/27/17 20:30 73 20 98 Room Air 02/27/17 20:14 94 Room Air 02/27/17 20:14 36.9 67 16 151/71 (97) 94 Room Air 02/27/17 18:30 73 20 98 Room Air 02/27/17 16:00 94 Room Air 02/27/17 15:58 36.8 70 20 154/73 (100) 94 Room Air Physical Exam General Appearance: no apparent distress Eyes: EOMI Neck: supple, no adenopathy Cardiovascular: regular rate, rhythm, no edema, no gallop, no murmur Abdomen: normal bowel sounds, non tender, soft Extremities: normal inspection, no pedal edema Neurologic/Psychiatric: alert, normal mood/affect, oriented x 3 Skin: warm/dry, no rash Lymphatic: no adenopathy Laboratory Results Last 24 Hours Test 02/27/17 16:29 02/27/17 21:00 02/28/17 05:55 02/28/17 11:16 Bedside Glucose 123 mg/dl 106 mg/dl 78 mg/dl Sodium Level 143 mmol/L Potassium Level 3.3 mmol/L Chloride Level 112 mmol/L Carbon Dioxide Level 26 mmol/L Anion Gap 5.0 mmol/L Blood Urea Nitrogen 8 mg/dl Creatinine 0.62 mg/dl Est Creatinine Clear Calc Drug Dose 72.6 ml/min Estimated GFR () 105.1 Estimated GFR (Non- 90.7 BUN/Creatinine Ratio 13.3 Random Glucose 89 mg/dl Calcium Level 8.0 mg/dl Assessment and Plan Assessment and Plan Ms. Rivera is a 71 y/o female with PMHx of Rheumatoid Arthritis, Chronic Dysphagia, Anxiety/Depression, GERD, HLD, Hypothyroidism, CAD S/P NSTEMI, H/O Gastric Ulcers, Chronic Diastolic CHF who experienced laryngospasm during EGD. Acute Hypoxic Respiratory Failure with Resp. Distress due to Laryngospasm: - Resolved - Was significantly hypoxic at 50% during EGD and required succs, decadron, racemic epi, versed, and nitro - EGD without significant findings to identify cause of dysphagia - Decadron 8 mg IV Q8H and Racemic Epi Q4H with Albuterol PRN - Continue prednisone taper - Pulmonary and Intensivists consulted - appreciate assistance Chronic Dysphagia and Laryngospasm/GERD: - Initial question of fungal infection involvement and currently on Caspofungin 50 mg IV - will consult ID and appreciate further recommendations - ENT did laryngoscopy and no abnormalities, however the exam is limited. videostroboscopy for a more formal evaluation of her larynx in outpatient setting. - also ENT suggested RA treatment for further advancement of the disease. - Protonix 40 mg daily - patient is tolerating full liquids. Rheumatoid Arthritis: - Currently off treatment but previously on Simponi and was following with Dr. 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 - Documented in chart however patient states she is not diabetic or ever on anti -diabetic medication - Random glucose on BMP at 170 and plan to implement Decadron so will monitor BSGs and cover with SSI; obtain A1c CAD S/P NSTEMI and HTN: - Follows with cardiology - suggested NSTEMI was from Sepsis/PNA instead of a coronary process - HTN believed to be related to possible use of Simponi and has been monitored - No ASA due to H/O gastric ulcers - Propranolol 30 mg daily Anxiety/Depression: - Buspar 10 mg daily and Lexapro 10 mg daily Hypothyroidism: - Synthroid 75 mcg daily DVT Prophylaxis: SCDs; if here for multiple days can add Heparin Code Status: FULL RESUSCITATION Disposition: - possible D/C in morning Continued [facility] stay due to: other Discharge planning: home
[2017-02-28] MEDS ORDERED: RACEPINEPHRINE 2.25% NEBU SOLN 0.5 ML VIAL INH PRN (16:00)
[2017-02-28] MEDS: ROSUVASTATIN CALCIUM 10 MG TAB PO SCH (20:56)
[2017-02-28] MEDS: PROPRANOLOL HCL 20 MG TAB PO SCH (20:57)
[2017-02-28] MEDS: POTASSIUM CHLORIDE 10 MEQ TABCR PO SCH (20:57)
[2017-03-01] VITALS (7 sets, daily range): BP systolic 137–159; BP diastolic 71–80; PULSE 55–81; TEMP 36.4–37; O2SAT 91–96
[2017-03-01] MEDS: LEVALBUTEROL 0.63MG/3 ML NEB INH SCH ×3 (02:47→14:20)
[2017-03-01] MEDS: LEVOTHYROXINE 75 MCG TAB PO SCH (06:38)
[2017-03-01] MEDS: INSULIN ASPART 100 UNITS/ML 3 ML PEN SC SCH ×2 (07:00→11:00)
[2017-03-01] MEDS: MULTIVITAMIN TAB PO SCH (08:09)
[2017-03-01] MEDS: CALCIUM 600MG + VIT D 400 IU TAB PO SCH (08:09)
[2017-03-01] MEDS: LACTOBACILLUS ACIDOPHILUS (FLORANEX) TAB PO SCH (08:09)
[2017-03-01] MEDS: ESCITALOPRAM OXALATE 10 MG TAB PO SCH (08:09)
[2017-03-01] MEDS: PANTOprazole SOD 40 MG TAB PO SCH (08:09)
--- NOTE | 2017-03-01 08:12 | Anesthesiology Progress Note ---
Anesthesia Post Op Note Date & Time Mar 01, 2017 at 08:06 Vital Signs Vital Signs Past 12 Hours Date Time Temp Pulse Resp B/P (MAP) Pulse Ox O2 Delivery O2 Flow Rate FiO2 03/01/17 07:06 72 18 96 Nasal Cannula 2.0 03/01/17 04:21 37.0 81 18 159/80 (106) 91 Nasal Cannula 1.0 03/01/17 04:00 Nasal Cannula 03/01/17 00:22 36.7 55 18 150/74 (99) 94 Nasal Cannula 1.0 03/01/17 00:01 Nasal Cannula 02/28/17 20:15 36.6 71 18 172/76 (108) 94 Room Air 2.0 Notes Mental Status: alert / awake / arousable, participated in evaluation Pt Amnestic to Procedure: Yes Nausea / Vomiting: adequately controlled Pain: adequately controlled Airway Patency, RR, SpO2: stable & adequate BP & HR: stable & adequate Hydration State: stable & adequate Anesthetic Complications: no major complications apparent Patient reports feeling much better this morning and seems in good spirits, reports no spasms since 2 days ago. Minimal SOB and maintaining O2 sats in mid 90's on 1-2L O2 NC. Tolerating liquid diet well at this time.Answered all questions related to anesthetic procedure during EGD procedure.
[2017-03-01 08:47] LABS: BUN/CREATININE RATIO 12.4 (10-20); CALCIUM 8.6 mg/dl (8.5-10.1); CREATININE 0.73 mg/dl (0.60-1.20)
[2017-03-01] MEDS ORDERED: POTASSIUM CHLORIDE 20 MEQ TABCR PO STA (09:00)
--- NOTE | 2017-03-01 09:04 | Hospitalist Progress Note ---
Hospitalist Progress Note Date of Service Mar 01, 2017. Objective Vital Signs Date Time Temp Pulse Resp B/P (MAP) Pulse Ox O2 Delivery O2 Flow Rate FiO2 03/01/17 08:19 36.4 69 16 137/78 (97) 93 Room Air 03/01/17 07:06 72 18 96 Nasal Cannula 2.0 03/01/17 04:21 37.0 81 18 159/80 (106) 91 Nasal Cannula 1.0 03/01/17 04:00 Nasal Cannula 03/01/17 00:22 36.7 55 18 150/74 (99) 94 Nasal Cannula 1.0 03/01/17 00:01 Nasal Cannula 02/28/17 20:15 36.6 71 18 172/76 (108) 94 Room Air 2.0 02/28/17 20:00 Nasal Cannula 02/28/17 19:38 61 18 95 Nasal Cannula 1.0 02/28/17 16:00 Nasal Cannula 02/28/17 15:58 36.9 66 18 166/83 (110) 94 Nasal Cannula 2.0 02/28/17 14:29 77 20 96 Nasal Cannula 1.0 02/28/17 12:00 Nasal Cannula 02/28/17 10:49 36.8 71 20 171/82 (111) 91 Room Air Laboratory Results Last 24 Hours Test 02/28/17 11:16 02/28/17 16:00 02/28/17 20:16 03/01/17 06:23 Bedside Glucose 78 mg/dl 115 mg/dl 89 mg/dl 74 mg/dl Test 03/01/17 08:04 Sodium Level 143 mmol/L Potassium Level 3.0 mmol/L Chloride Level 104 mmol/L Carbon Dioxide Level 31 mmol/L Anion Gap 9.0 mmol/L Blood Urea Nitrogen 9 mg/dl Creatinine 0.73 mg/dl Est Creatinine Clear Calc Drug Dose 62.1 ml/min Estimated GFR () 96.0 Estimated GFR (Non- 82.9 BUN/Creatinine Ratio 12.4 Random Glucose 116 mg/dl Calcium Level 8.6 mg/dl Assessment and Plan Ms. Rivera is a 71 y/o female with PMHx of Rheumatoid Arthritis, Chronic Dysphagia, Anxiety/Depression, GERD, HLD, Hypothyroidism, CAD S/P NSTEMI, H/O Gastric Ulcers, Chronic Diastolic CHF who experienced laryngospasm during EGD. Acute Hypoxic Respiratory Failure with Resp. Distress due to Laryngospasm: - Resolved - Was significantly hypoxic at 50% during EGD and required succs, decadron, racemic epi, versed, and nitro - EGD without significant findings to identify cause of dysphagia - Decadron 8 mg IV Q8H and Racemic Epi Q4H with Albuterol PRN - Continue prednisone taper - Pulmonary and Intensivists consulted - appreciate assistance Chronic Dysphagia and Laryngospasm/GERD: - Initial question of fungal infection involvement and currently on Caspofungin 50 mg IV - will consult ID and appreciate further recommendations - ENT did laryngoscopy and no abnormalities, however the exam is limited. videostroboscopy for a more formal evaluation of her larynx in outpatient setting. - also ENT suggested RA treatment for further advancement of the disease. - Protonix 40 mg daily - patient is tolerating full liquids. Rheumatoid Arthritis: - Currently off treatment but previously on Simponi and was following with Dr. 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 - Documented in chart however patient states she is not diabetic or ever on anti -diabetic medication - Random glucose on BMP at 170 and plan to implement Decadron so will monitor BSGs and cover with SSI; obtain A1c CAD S/P NSTEMI and HTN: - Follows with cardiology - suggested NSTEMI was from Sepsis/PNA instead of a coronary process - HTN believed to be related to possible use of Simponi and has been monitored - No ASA due to H/O gastric ulcers - Propranolol 30 mg daily Anxiety/Depression: - Buspar 10 mg daily and Lexapro 10 mg daily Hypothyroidism: - Synthroid 75 mcg daily DVT Prophylaxis: SCDs; if here for multiple days can add Heparin Code Status: FULL RESUSCITATION Disposition: - possible D/C in morning
[2017-03-01] MEDS: CASPOFUNGIN INJ 50 MG in SODIUM CHLORIDE 0.9% 250ML 250 ML IV SCH (11:14)
--- NOTE | 2017-03-01 11:45 | Discharge Instructions ---
Discharge Instructions Date of Service Mar 01, 2017. Admission Reason for Admission: Dysphagia Discharge Discharge Diagnosis / Problem: Laryngeal Spasm Discharge Goals Goal(s): Decrease discomfort, Improve function Activity Recommendations Activity Limitations: resume your previous activity Lifting Limitations: no more than 25 pounds Exercise/Sports Limitations: rest today, gradually increase as tolerated May Resume Sexual Activity: when tolerated Shower/Bathe: no limitations Driving or Machine Use: resume 1 day after discharge . Instructions / Follow-Up Instructions / Follow-Up You were admitted to [facility] with laryngospasm during EGD and diagnosed with the same, due to rheumatoid arthritis. During your stay here you were treated with Critical care management initially. Your care was then transitioned to oral steriods, supportive care, and evaluation by speech therapy for diet recommendations. Medications: Continue a mechanical soft diet as per speech therapy. You should discuss Barium swallow study to evaluate swallowing function in the future with your Family physician. Continue caspofungin infusions for oral fungal infection x 4 more doses to complete a [address] Thompson, infectious disease. Continue prednisone taper as directed: You have been given two prescriptions of prednisone at different strengths. Start with the 10 mg tablets 20 mg (2 tablets) x 4 days, then 10 mg (1 tab) x 4 days Follow with 5 mg daily until seen by Rheumatology, appointment has been requested for you Appointments: Follow up with your Primary Care Provider within 1 week, an appointment has been requested for you. Follow up with Infectious Disease, Dr. Thompson, on Saturday 03/03 @ 3:30 pm Follow up with Rheumatology within 1-2 weeks. Follow up with ENT within 1-2 weeks. Current Hospital Diet Patient's current hospital diet: Full Liquid Diet Discharge Diet Recommended Diet: Regular Diet (slippery consistency) Procedures Procedures Performed: EGD Pending Studies Studies pending at discharge: no Laboratory Results Hemoglobin A1c Test 02/27/17 06:17 Range/Units Estimated Average Glucose 117 mg/dl Hemoglobin A1c 5.7 H 4.5-5.6 % Medical Emergencies . Who to Call and When: Medical Emergencies: If at any time you feel your situation is an emergency, please call 911 immediately. . Non-Emergent Contact Non-Emergency issues call your: Primary Care Provider, Specialist (Infectious disease) Call Non-Emergent contact if: temperature is above 100.5, your pain is not controlled, your pain is worsening, your pain is unusual for you, your pain is concerning you, you have any medication questions other concerns with your health. Call 911 or go directly to the Emergency Department if you experience any of the following: Chest pain, chest tightness, shortness of breath, abdominal pain , lightheadedness, dizziness, gastrointestinal bleeding, or have any other concerns regarding your health. . Past History Medical & Surgical History: (1) Laryngeal spasm (2) Rheumatoid arthritis (3) History of esophagogastroduodenoscopy (EGD) . "Provider Documentation" section prepared by Eunice Blanchard. . VTE Core Measure Inpt VTE Proph given/why not?: SCD's
[2017-03-01] MEDS ORDERED: PRED-301 PO (11:50)
[2017-03-01] MEDS ORDERED: PRD10 PO (11:50)
--- NOTE | 2017-03-01 12:03 | Discharge Summary ---
Discharge Summary Date of Service Mar 01, 2017. Discharge Summary Admission Date: Feb 26, 2017 at 11:33 Discharge Date: Mar 01, 2017 Discharge Disposition: Home Principal Diagnosis: Laryngeal Spasm Problems/Secondary Diagnoses: Rheumatoid Arthritis Chronic Dysphagia Anxiety/Depression GERD HLD Hypothyroidism CAD S/P NSTEMI H/O Gastric Ulcers Chronic Diastolic CHF laryngospasm Procedures: CHEST ONE VIEW PORTABLE 01/26/17 IMPRESSION: Parenchymal infiltrate left mid to lower lung. Small left pleural effusion. PICC catheter in the superior vena cava. CHEST 2 VIEWS ROUTINE 02/26/17 IMPRESSION: 1. Improved aeration of the left lung with minimal linear subsegmental left basilar opacities suggesting atelectasis or scarring. 2. Stable positioning of left-sided PICC. Consultations: Conference Planning Manager Rheumatology Pulmonolgy ENT Infectious Disease Medication Reconciliation New Medications: Prednisone (Prednisone) 5 Mg Tab 5 MG PO DAILY for 20 Days, #20 TAB Prednisone (Prednisone) 10 Mg Tab 20 MG PO UD for 8 Days, #12 TAB Take 20 mg x 4 days, then 10 mg x 4 days. Follow with 5 mg tablets Continued Medications: Buspirone Hcl (Buspirone Hcl) 10 Mg Tab 10 MG PO HS Calcium Carbonate-Vitamin D (Calcium + D) 1 Tab Tab 1 TAB PO DAILY Escitalopram Oxalate (Lexapro) 10 Mg Tab 10 MG PO QAM Esomeprazole Magnesium (Nexium) 40 Mg Capcr 40 MG PO QAM Estradiol (Vivelle-Dot) 0.05 Mg/24 Hr Dis 0.05 MG TOP WK Levothyroxine Sodium (Synthroid) 75 Mcg Tab 75 MCG PO QAM Loratadine (Claritin) 10 Mg Tab 10 MG PO DAILY PRN for Seasonal Allergies Multiple Vitamin (Multi Vitamin Daily) 1 Tab Tab 1 TAB PO DAILY Nitroglycerin (Nitrostat) 0.4 Mg Tab 0.4 MG UT UD PRN for THROAT SPASMS Potassium Chloride (Klor-Con Ext Rel) 8 Meq Cap 1-2 TABS PO QAM Probiotic Product (Probiotic) 1 Cap Cap 1 CAP PO DAILY Propranolol (Inderal) 20 Mg Tab 1.5 TABS PO HS Rosuvastatin Calcium (Crestor) 10 Mg Tab 10 MG PO HS, TAB [Gaspofungis Acitate] () 1 DOSE IV DAILY Discharge Exam The patient was seen and examined this morning. Pt reports doing well today, she reports feeling the best she has in days. She slept well overnight. She has been tolerating a full liquid diet without any difficulty and is requesting a diet advancement. Speech evaluated her and agrees with a regular diet with slippery consistency. Denies cp, sob, palpitations, flutter, lightheadedness, dizziness. Ambulating about the room without difficulty. ROS: 10 point ROS reviewed and otherwise negative. Physical Exam: General Appearance: WD/WN, no apparent distress Eyes: normal inspection, PERRL ENT: hearing grossly normal, pharynx normal Neck: supple, thyroid normal Respiratory/Chest: chest non-tender, lungs clear, no respiratory distress, no accessory muscle use Cardiovascular: regular rate, rhythm, no murmur, normal peripheral pulses Abdomen / GI: normal bowel sounds, non tender, soft Extremities: normal inspection, no calf tenderness, no pedal edema Neurologic/Psychiatric: alert, normal mood/affect, oriented x 3 Skin: normal color, warm/dry Hospital Course History of Present Illness Source: patient, clinic records, hospital records Ms. Rivera is a 71 y/o female with PMHx of Rheumatoid Arthritis, Chronic Dysphagia, Anxiety/Depression, GERD, HLD, Hypothyroidism, CAD S/P NSTEMI, H/O Gastric Ulcers, Chronic Diastolic CHF who experienced laryngospasm during EGD. Patient reports having daily laryngospasms since the summer and has undergone evaluation for cause. She has been unable to adequately eat due to this but only reports a 5 lbs weight loss since the summer. She has difficulty with solids and liquids. She cannot really state at what phase of swallowing she is having difficulty with. These spasms initially only occurred every few days but have progressed to daily occurrences with multiple episodes. Also states that these episodes are taking longer to resolve compared to when this issues began. She has been followed by Dr. Thompson for oropharynx fungal infection that only minimally responded to Diflucan so was recently placed on Caspofungin 50 mg IV with PICC line in place. During EGD no findings present to explain her chronic dysphagia or findings of fungal infection. She has been utilizing NTG SL PRN with relief. During procedure she developed laryngospasm resulting in significant hypoxia of 50% and unable to move air with Ambu-bag. She was given succinylcholine which resolved the spasm and saturations returned to 100%. Due to inspiratory stridor she then received Decadron 8 mg IV and Racemic Epi that did result in improvement. She was maintaining adequate oxygenations but would experience coughing and wheezing that would result in hypoxia in high-80s. During coughing spells she appeared in more distress and reporting SOB. NTG SL was initiated x 2 doses and Versed given which continued to improve her. Anesthesia discussed with ENT for possible scope but recommended just observation overnight as oxygenations were adequate. She does follow with Dr. Ellis from ENT in [place]. Physical Exam Vital Signs Date Time Temp Pulse Resp B/P (MAP) Pulse Ox O2 Delivery O2 Flow Rate FiO2 02/26/17 11:40 73 20 134/73 (93) 98 Oxymask 10 02/26/17 11:25 74 18 159/ (52) 98 Oxymask 10 02/26/17 11:10 85 18 160/82 (108) 98 Oxymask 10 02/26/17 10:55 84 22 160/77 (104) 98 Oxymask 10 98 02/26/17 10:40 89 20 164/78 (106) 98 Oxymask 10 98 02/26/17 08:05 36.6 68 16 173/75 (107) 98 Room Air General Appearance: WD/WN, + mild distress (respiratory with coughing spells) Head: normocephalic, atraumatic Eyes: sclerae normal ENT: hearing grossly normal, pharynx normal Neck: supple, no JVD, trachea midline, + pertinent finding (stridor upon auscultation) Respiratory/Chest: + respiratory distress, + stridor, + wheezing Cardiovascular: regular rate, rhythm, no gallop, no murmur Abdomen/GI: normal bowel sounds, non tender, soft Extremities/Musculoskelatal: no calf tenderness, no pedal edema, + pertinent finding (LUE PICC without erythema or discharge) Neurologic/Psych: alert, oriented x 3 Skin: normal color, warm/dry Hospital Course: Ms. Rivera is a 71 y/o female with PMHx of Rheumatoid Arthritis, Chronic Dysphagia, Anxiety/Depression, GERD, HLD, Hypothyroidism, CAD S/P NSTEMI, H/O Gastric Ulcers, Chronic Diastolic CHF who experienced laryngospasm during EGD. Acute Hypoxic Respiratory Failure with Resp. Distress due to Laryngospasm: - Resolved - Was significantly hypoxic at 50% during EGD and required succs, decadron, racemic epi, versed, and nitro - EGD without significant findings to identify cause of dysphagia - scheduled Barium swallow study as an outpt for 03/03 at 11:00am, pt will need to be NPO x 6 hours prior to the study. Follow up with PCP, ENT, and Rheumatology - Decadron 8 mg IV Q8H and Racemic Epi Q4H with Albuterol PRN Transitioned decadron to prednisone taper at time of d/c- finished 30 mg while admitted, continue 20 mg x 4, then 10 mg x 4 and 5 mg afterwards. - Pulmonary and Intensivists consulted - appreciate assistance Chronic Dysphagia and Laryngospasm/GERD: - Initial question of fungal infection involvement and currently on Caspofungin 50 mg IV - continue x 4 more days, last day of tx is 03/05/17 - follow up with Dr. Thompson as noted below. - ENT did laryngoscopy and no abnormalities, however the exam is limited. Consider videostroboscopy vs barium swallow for a more formal evaluation of her larynx in outpatient setting. - also ENT suggested RA treatment for further advancement of the disease. - Protonix 40 mg daily - patient is tolerated full liquids and diet advanced per speech to regular diet with slippery consistency. Rheumatoid Arthritis: - Currently off treatment but previously on Simponi and was following with Dr. Roberson - Rheumatology consulted -- Continue Prednisone taper as above. Oral Candidiasis - Discussed with Dr. Thompson over the phone and he would like a total of 14 day course - will finish on 03/05/17. Provided script for 4 more days to the patient. - Continue IV daily infusions via R PICC line. - Follow up with Dr. Thompson on Saturday 03/03 at 3:30 pm. T2DM? - Random glucose on [facility] at 170 - improved, covered with SSI - A1C = 5.7 CAD S/P NSTEMI and HTN: - Follows with cardiology - suggested NSTEMI was from Sepsis/PNA instead of a coronary process - HTN believed to be related to possible use of Simponi and has been monitored - No ASA due to H/O gastric ulcers - Propranolol 30 mg daily Anxiety/Depression: - Buspar 10 mg daily and Lexapro 10 mg daily Hypothyroidism: - Synthroid 75 mcg daily DVT Prophylaxis: SCDs; if here for multiple days can add Heparin Code Status: FULL RESUSCITATION Disposition: d/c to home today Total Time Spent: Greater than 30 minutes This includes examination of the patient, discharge planning, medication reconciliation, and communication with other providers. Discharge Instructions Please refer to the electronic Patient Visit Report (Discharge Instructions) for additional information. Follow-Up Follow up with your Primary Care Provider within 1 week, an appointment has been requested for you. Follow up with Infectious Disease, Dr. Thompson, on Saturday 03/03 @ 3:30 pm Follow up with Rheumatology within 1-2 weeks. Follow up with ENT within 1-2 weeks. Additional Copies To Allison Wood M.D.
--- NOTE | 2017-03-01 14:12 | Infectious Disease Progress Nt ---
Progress Note Date of Service Mar 01, 2017. Subjective Pt evaluation today including: conversation w/ patient, physical exam, chart review, lab review, review of studies, conversation w/ senior talent management consultant, review of inpatient medication list Patient offering no new complaints today. Hemodynamically stable overnight. Remains afebrile. No increase in cough or shortness of breath. All Other Systems: Reviewed and Negative Medications Current Inpatient Medications Medications (Trade) Dose Ordered Sig/Danny Route Start Time Stop Time Status Last Admin Dose Admin Acetaminophen (Tylenol Tab) 650 mg Q4H PRN PO 02/26/17 10:45 03/28/17 10:44 02/28/17 05:07 650 MG Al Hydrox/Mg Hydrox/Simethicone (Maalox Max Susp) 15 ml Q4H PRN PO 02/26/17 10:45 03/28/17 10:44 Magnesium Hydroxide (Milk Of Magnesia Susp) 30 ml Q12H PRN PO 02/26/17 10:45 03/28/17 10:44 Polyethylene (Miralax Powder Packet) 17 gm DAILY PRN PO 02/26/17 10:45 03/28/17 10:44 Miscellaneous (Iv Fluids Completed) 1 ea PRN PRN N/A 02/26/17 11:30 02/26/18 11:29 Albuterol Sulfate (Ventolin 0.083% 2.5MG/3ML Neb) 2.5 mg Q2H PRN INH 02/26/17 11:45 03/28/17 11:44 02/27/17 22:31 2.5 MG Nitroglycerin (Nitrostat Tab) 0.4 mg PRN PRN SL 02/26/17 14:15 03/28/17 14:14 Escitalopram Oxalate (Lexapro Tab) 10 mg QAM PO 02/27/17 09:00 03/29/17 08:59 03/01/17 08:09 10 MG Levothyroxine Sodium (Synthroid Tab) 75 mcg DAILYBB PO 02/27/17 06:00 03/29/17 05:59 03/01/17 06:38 75 MCG Loratadine (Claritin Tab) 10 mg DAILY PRN PO 02/26/17 15:00 03/28/17 14:59 Multivitamins (Multivitamin Tab) 1 tab DAILY PO 02/27/17 09:00 03/29/17 08:59 03/01/17 08:09 1 TAB Propranolol HCl (Inderal Tab) 30 mg HS PO 02/26/17 21:00 03/28/17 20:59 02/28/17 20:57 30 MG Rosuvastatin Calcium (Crestor Tab) 10 mg HS PO 02/26/17 21:00 03/28/17 20:59 02/28/17 20:56 10 MG Buspirone HCl (Buspar Tab) 10 mg HS PO 02/26/17 21:00 03/28/17 20:59 02/28/17 20:57 10 MG Calcium/Vitamin D (Caltrate Plus Tab) 1 tab DAILY PO 02/27/17 09:00 03/29/17 08:59 03/01/17 08:09 1 TAB Pantoprazole Sodium (Protonix Tab) 40 mg QAM PO 02/27/17 09:00 03/29/17 08:59 03/01/17 08:09 40 MG Insulin Aspart (novoLOG ASPART) SLIDING SCALE If C... ACHS SC 02/26/17 21:00 03/28/17 20:59 Glucose (Glucose 40% Gel) 15-30 GRAMS 15 GRAMS... UD PRN PO 02/26/17 19:45 03/28/17 19:44 Glucose (Glucose Chew Tab) 4-8 Tablets 4 Tabl... UD PRN PO 02/26/17 19:45 03/28/17 19:44 Dextrose (Dextrose 50% 50ML Syringe) 25-50ML OF 50% DW IV FOR... UD PRN IV 02/26/17 19:45 03/28/17 19:44 Glucagon (Glucagon Inj) 1 mg UD PRN SQ 02/26/17 19:45 03/28/17 19:44 Prednisone (PredniSONE TAB) 30 mg Taper DAILY PO 02/27/17 09:00 04/10/17 08:59 03/01/17 08:09 30 MG Heparin Sodium (Porcine) (Heparin 10 Unit/ ml 5 ml Flush) 5 ml PRN PRN FLUSH 02/27/17 02:30 03/29/17 02:29 03/01/17 13:11 5 ML Caspofungin 50 mg/ Sodium Chloride 260 ml @ 250 mls/hr DAILY@1100 IV 02/28/17 11:00 03/04/17 00:01 03/01/17 11:14 250 MLS/HR Lactobacillus Acidophilus (Floranex Tab) 4 tab DAILY PO 02/27/17 14:00 03/29/17 13:59 03/01/17 08:09 4 TAB Potassium Chloride (Klor-Con M10) 10 meq HS PO 02/27/17 21:00 03/29/17 20:59 02/28/17 20:57 10 MEQ Levalbuterol (Xopenex 0.63 Mg/ 3 Ml Neb) 0.63 mg Q6R INH 02/28/17 05:10 03/30/17 05:09 03/01/17 07:06 0.63 MG Racepinephrine (Raccemic Epinephrine 2.25% 0.5ML Neb) 0.5 ml Q4 PRN INH 02/28/17 16:00 03/30/17 15:59 Objective Vital Signs Date Time Temp Pulse Resp B/P (MAP) Pulse Ox O2 Delivery O2 Flow Rate FiO2 03/01/17 13:34 36.6 64 20 94 Room Air 03/01/17 12:00 Room Air 03/01/17 11:05 36.6 64 20 147/71 (96) 94 Room Air 03/01/17 08:19 36.4 69 16 137/78 (97) 93 Room Air 03/01/17 08:00 Room Air 03/01/17 07:06 72 18 96 Nasal Cannula 2.0 03/01/17 04:21 37.0 81 18 159/80 (106) 91 Nasal Cannula 1.0 03/01/17 04:00 Nasal Cannula 03/01/17 00:22 36.7 55 18 150/74 (99) 94 Nasal Cannula 1.0 03/01/17 00:01 Nasal Cannula 02/28/17 20:15 36.6 71 18 172/76 (108) 94 Room Air 2.0 02/28/17 20:00 Nasal Cannula 02/28/17 19:38 61 18 95 Nasal Cannula 1.0 02/28/17 16:00 Nasal Cannula 02/28/17 15:58 36.9 66 18 166/83 (110) 94 Nasal Cannula 2.0 02/28/17 14:29 77 20 96 Nasal Cannula 1.0 Physical Exam General Appearance: WD/WN, no apparent distress Eyes: normal inspection, sclerae normal ENT: normal ENT inspection, pharynx normal Neck: supple, no adenopathy, thyroid normal, trachea midline Respiratory/Chest: chest non-tender, lungs clear, normal breath sounds, no respiratory distress Cardiovascular: regular rate, rhythm, no gallop, no murmur Abdomen: normal bowel sounds, non tender, soft, no organomegaly Extremities: non-tender, no calf tenderness Neurologic/Psychiatric: alert, oriented x 3 Skin: normal color, no rash Lymphatic: no adenopathy Laboratory Results Last 24 Hours Test 02/28/17 16:00 02/28/17 20:16 03/01/17 06:23 03/01/17 08:04 Bedside Glucose 115 mg/dl 89 mg/dl 74 mg/dl Sodium Level 143 mmol/L Potassium Level 3.0 mmol/L Chloride Level 104 mmol/L Carbon Dioxide Level 31 mmol/L Anion Gap 9.0 mmol/L Blood Urea Nitrogen 9 mg/dl Creatinine 0.73 mg/dl Est Creatinine Clear Calc Drug Dose 62.1 ml/min Estimated GFR () 96.0 Estimated GFR (Non- 82.9 BUN/Creatinine Ratio 12.4 Random Glucose 116 mg/dl Calcium Level 8.6 mg/dl Test 03/01/17 11:03 Bedside Glucose 89 mg/dl Assessment and Plan 71-year-old female patient treated for oral candidiasis with caspofungin, now admitted to the ICU with acute laryngospasm and hypoxia, now improved. Patient for discharge, recommend 14 days total of caspofungin.
== END 2017-03-01 15:35 | disposition home or self-care (01) | DRG 154 ==
LOC: C.GI 07:09 → CANRESERV 11:06 → ENRESERV 11:06 → C.MED 11:33 → UNDOADMIN 12:21 → C.MED 12:24 → C.MSICU 12:24 → ENRESERV 02-27 00:42 → C.2T 02-27 01:10
PROVIDERS: ADMIT Family Medicine; ATTEND Hospitalist
PROC: 0CJS8ZZ Inspection of Larynx, Via Natural or Artificial Opening Endoscopic (ICD-10-PCS; 2017-02-26)
PROC: 0DJ08ZZ Inspection of Upper Intestinal Tract, Via Natural or Artificial Opening Endoscopic (ICD-10-PCS; principal; 2017-02-26 08:30)
DX: J38.5 Laryngeal spasm (principal); J96.01 Acute respiratory failure with hypoxia; I50.32 Chronic diastolic (congestive) heart failure; B37.0 Candidal stomatitis; M06.00 Rheumatoid arthritis without rheumatoid factor, unspecified site; K21.9 Gastro-esophageal reflux disease without esophagitis; R13.10 Dysphagia, unspecified; E11.9 Type 2 diabetes mellitus without complications; I25.10 Atherosclerotic heart disease of native coronary artery without angina pectoris; I11.0 Hypertensive heart disease with heart failure; I25.2 Old myocardial infarction; F32.9 Major depressive disorder, single episode, unspecified; F41.9 Anxiety disorder, unspecified; E03.9 Hypothyroidism, unspecified; Z79.899 Other long term (current) drug therapy; Z88.0 Allergy status to penicillin; Z91.040 Latex allergy status

== ENCOUNTER → 2017-04-15 | Outpatient (CLI) | payer OTHER, BC ==
[~2017-04-15] MED LIST changes: +PRD10 PO
--- NOTE | 2017-04-15 10:19 | DIAGNOSTIC IMAGING REPORT ---
SOFT TISS HEAD/NECK-THYROID HISTORY: Dysphagia HOARSNESS COMPARISON: None. FINDINGS: Right lobe: Maximum dimension 2.5 cm. Internal architecture is heterogeneous. No significant nodularity Left lobe: Maximum dimension 2.1 cm. Internal architecture is heterogeneous. No significant nodularity Isthmus: No nodules. IMPRESSION: 1. Mild thyroid atrophy. 2. No significant nodularity. 3. Heterogeneity of internal architecture suggesting a potential component of chronic thyroiditis The above report was generated using voice recognition software. It may contain grammatical, syntax or spelling errors. Electronically signed by: Giorgi Menezes M.D. 04/15/2017 10:18 AM Dictated Date/Time: 04/15/2017 10:16 AM
== END | disposition home or self-care (01) ==
LOC: C.ULTR 09:46
PROVIDERS: ATTEND Physician Assistant Medical
DX: R49.0 Dysphonia (principal)

== ENCOUNTER → 2017-04-15 | Outpatient (CLI) | payer OTHER, BC ==
--- NOTE | 2017-04-15 10:54 | DIAGNOSTIC IMAGING REPORT ---
(BARIUM SWALLOW) ESOPHAGUS CLINICAL HISTORY: Larynx SPASMS/SWALLOWING IRRITATION COMPARISON STUDY: Upper GI series 02/01/2015 FLUOROSCOPY TIME: 2 minutes. 25 images submitted. FINDINGS: There is again noted mild esophageal dysmotility. Otherwise, the esophagus is normal in course and caliber. No hiatus hernia. No gastroesophageal reflux. The contours of the hypopharynx are within normal limits. There is small amount of deep penetration without aspiration demonstrated during the examination. The barium tablet passed without difficulty. IMPRESSION: 1. Mild esophageal dysmotility, unchanged. 2. Small amount of deep penetration of the barium without aspiration. Electronically signed by: Nilay Rossi M.D. 04/15/2017 10:53 AM Dictated Date/Time: 04/15/2017 10:49 AM
== END | disposition home or self-care (01) ==
LOC: C.RAD 09:47
PROVIDERS: ATTEND Internal Medicine
DX: R13.10 Dysphagia, unspecified (principal); R49.0 Dysphonia